=== PATIENT | male | born 1930 | race Caucasian/White ===

== ENCOUNTER 2017-04-09 05:00 | Inpatient (IN) ==
[~2017-04-09 05:00] MED LIST: APIXABAN 2.5 MG TABLET PO SCH; ChlordiazePOXIDE/CLIDINIUM 5-2.5 MG CAPSULE PO SCH; DEXTROSE 5% NACL 0.45% 1,000 ML IV SCH; DIGOXIN 0.25 MG TABLET PO SCH; ENOXAPARIN 30 MG/0.3 ML SYRINGE SUBCUT SCH; FLUTICASONE 50 MCG NASAL SPRAY 16 GM BOTTLE BOTH NARES SCH; FUROSEMIDE 20 MG TABLET PO PRN; LEVOTHYROXINE 100 MCG TABLET PO SCH; METOPROLOL TARTRATE 25 MG TABLET PO SCH; METOPROLOL TARTRATE 50 MG TABLET PO SCH; TAMSULOSIN 0.4 MG CAPSULE PO SCH
--- NOTE | 2017-04-09 09:58 | Gastrointestinal Consult Note ---
<Tiffanie Spann - Last Filed: 04/09/17 09:46> Assessment and Plan (1) Nausea Status: Acute Assessment and plan: 04/09-Three to four month history of nausea with 4 pd weight loss. Hx of PUD. Findings of gallstones w/o cholecystitis. No labwork or new imaging available at this time. No EGD planned for today. May start clear liquid diet. Plan and addendum to follow by Dr Calvillo. Current Visit: Yes History of Present Illness Chief complaint: Nausea History of present illness: Mr. Pink is a 86 year old male who presented to the hospital with complaints of nausea. Pt is a fair historian however is at bedside and assists in history. Pt reports that approximately 3-4 months ago he had a gradual onset of nausea. He states nothing seemed to precipitate the episodes however they would occur randomly. He states he never vomits however he has tried to do so to get relief without success. He states that he has no epigastric or abdominal pain associated with this. He has lost approximately 4 pounds since onset. Denies any associated symptoms other than constipation around the same time. He states that he has no dysphagia, belching, bloating or dyspepsia. States his GERD is improved from what it was in the past and reports taking a PPI regularly. He denies any melena or hematochezia. He also has a history of atrial fib/flutter, CVA, HTN, RA, and renal failure. He was seen in the ER last week for abdominal pain and had CT of abdomen which showed cholelithiasis w/o acute cholecystitis, irregular density in left upper abdomen. 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 He is unable to recall his last endoscopy but states he has a history of PUD in the past. He states he was told with his last colonoscopy this would not need to be repeated again. No updated imaging or labs available at this time. Home Medications Medication Instructions Recorded Confirmed Type HYDROcodone/ACETAMIN 5-325 [[place] 10 mg PO BID PRN 04/09/15 04/09/17 History 5-325] Metoprolol Succinate 25 mg PO QPM 04/09/15 04/09/17 History Metoprolol Succinate 50 mg PO QAM 04/09/15 04/09/17 History Apixaban [Eliquis] 2.5 mg PO BID #60 tablet 04/17/16 04/09/17 Rx Docusate Sodium Cap [Colace Cap] 100 mg PO BID capsule 04/17/16 04/09/17 Rx ChlordiazePOX/CLIDINIUM 5-2.5 5 mg PO TIDAC 04/09/17 04/09/17 History [Librax] Digoxin 0.25 mg PO DIRECTED 04/09/17 04/09/17 History Furosemide Tab [Lasix Tab] 20 mg PO DAILY PRN 04/09/17 04/09/17 History Levothyroxine Tab [Synthroid Tab] 100 mcg PO DAILY@0700 04/09/17 04/09/17 History Tamsulosin [Flomax] 0.4 mg PO DAILY 04/09/17 04/09/17 History Vit C/Vit E AC/Lut/Copper/Zinc 1 tablet PO DAILY 04/09/17 04/09/17 History [Preservision Lutein Softgel] Allergies Allergy/AdvReac Type Severity Reaction Status Date / Time No Known Allergies Allergy Verified 04/03/17 05:45 Medical,Surgical,& Family Hx - Medical History Cardio: History of: Cardiac Dysrhythmia (AFIB), Hypertension Endocrine: History of: Dyslipidemia Gastrointestinal: History of: GI Problems (spleenectomy/pancreas) - Surgical History Abdominal Surgeries: Patient denies: Abdominal Surgery - Family History Family History: Reports;: Family Cancer, Family Heart Disease, Family Hypertension, Family Stroke - Social History Smoking Status: Never smoker Frequency of Alcohol Use: None Type of Drug Use: None 12 point system: reviewed and no additional remarkable complaints except as stated - Constitutional Constitutional: Present: as per HPI, weight loss - EENT Eyes: Present: as per HPI Ears: Present: as per HPI Nose, mouth and throat: Present: as per HPI - Cardiovascular Cardiovascular: Present: as per HPI - Respiratory Respiratory: Present: as per HPI - Gastrointestinal Gastrointestinal: Present: as per HPI, nausea - Genitourinary Genitourinary: Present: as per HPI - Musculoskeletal Musculoskeletal: Present: as per HPI - Neurological Neurological: Present: as per HPI - Psychiatric Psychiatric: Present: as per HPI - Endocrine Endocrine: Present: as per HPI - Hematologic/Lymphatic Hematologic/Lymphatic: Present: as per HPI Exam - Constitutional Vitals: Period Temp Pulse Resp BP Sys/Taylor Pulse Ox Last 24 Hr 98.7 F-98.7 F 70-70 20-20 152-152/104-104 95-95 General appearance: normal weight, no acute distress - Head Head exam: Present: normal inspection, normocephalic - Eye Eye exam: Present: other (lids and conjunctiva unremarkable). Absent: scleral icterus - ENT ENT exam: Present: normal exam, normal oropharynx - Neck Neck exam: Present: normal inspection - Respiratory Respiratory exam: Present: clear to auscultation bilaterally. Absent: rales, rhonchi, wheezes - Cardiovascular Cardiovascular exam: Present: regular rate and rhythm. Absent: diastolic murmur , JVD, systolic murmur - GI/Abdominal GI/Abdominal exam: Present: normal bowel sounds, soft. Absent: ascites, distended, mass, organomegaly, tenderness - Extremities Exam Extremities exam: Present: normal inspection, full ROM - Back Exam Back exam: Present: normal inspection - Neurological Exam Neurological exam: Present: alert, oriented X3 - Psychiatric Psychiatric exam: Present: normal affect, normal mood - Skin Skin exam: Present: normal color, warm, dry <Bao Calvillo - Last Filed: 04/09/17 12:51> History of Present Illness History of present illness: Mr. Pink is a 86 year old male Exam - Constitutional Vitals: Period Temp Pulse Resp BP Sys/Taylor Pulse Ox Last 24 Hr 97.5 F-98.7 F 70-72 18-20 152-170/96-104 93-95 Results - Labs CBC & BMP: 04/09/17 10:20 04/09/17 10:20
--- NOTE | 2017-04-09 10:12 | Pulmonology History & Physical ---
History of Present Illness Chief complaint: Food aversion. Nausea. Weight loss. History of present illness: Mr. Pink is a 86 year old white male who is seen as a work in in my office on 04/03/2017. He came along with his Razia. Patient's also followed by Kenna Carbajal nurse practitioner at the [facility] in [place]. This patient has developed an aversion to food. He can eat very little. He has associated nausea. He is having a hard time keeping food down. Since I last saw him 12/24/2016 he has lost 4 pounds. He went to the emergency room on because he had nausea and some vague abdominal pain. He was found to have a single gallstone. The gallbladder itself looked normal and his liver function tests were normal. He was told that he possibly needed gallbladder surgery and he told the emergency room doctor he wanted to discuss it with me first. The abdominal pain is not severe and sometimes it is localized near the right upper quadrant. I did not get a good history for gallbladder symptoms. 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 This was followed by a Sara-en-Y procedure and complicated by aspiration and pulmonary bacterial infections and adult respiratory distress syndrome that require mechanical ventilation on a long-term basis. Patient was then at [facility] 04/13/2005 2 05/21/2005. I wonder if we are dealing with a problem with improper gastric emptying. The patient also complains of some increased difficulty urinating. In the past he was on Flomax 0.4 mg once a day and when I saw him in the office 04/03/2017 increased to 0.4 mg twice a day with instructions to watch for postural hypotension. Patient also had a history of chronic renal failure and he has had a history of heart disease which is followed by Dr. Red Trejo. He has been followed from a GI standpoint by Dr. Manuel Calvillo. The patient has very little endurance and he has some dyspnea on exertion he has some shortness of breath. The patient had a stroke while on Coumadin in the past and he was switched to Eliquis and. His strokes were thought to be embolic. He has had no problems with bleeding while on Eliquis. The patient also complains of pain all over his body which he thinks is arthritis. The remainder the review of systems is negative. Allergies. In the distant past a B12 injection caused a rash. The patient has intolerance to Zoloft. Reglan made his legs hurt. Procardia caused lower extremity edema. Patient says that when he took gabapentin he talked out of his head. Medicines. B12 1 cc IM once a month. Lanoxin 0.25 mg, one half tablet on Wednesdays and Fridays. Eliquis 2.5 mg twice daily. Flomax 0.4 mg twice daily. Flonase nasal spray. Lasix 20 mg daily on a as needed basis. Librax 52 0.5, 1 3 times daily before meals as needed. Metoprolol tartrate 2 mg in the morning 20 5 at night. [place] 7.5/3 25 mg, 1 4 times daily as needed pain. I think the patient usually takes 1 pill before bedtime. Synthroid 100 mcg daily. PreserVision AREDS. Pneumovax was given 2008. Past history. [facility] hospitalization 03/12/2005 through 04/13/2005. 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 Following that he had problems with aspiration and developed adult respiratory distress syndrome and later had a bacterial superinfection. He required mechanical ventilation on a long-term basis. He also had a trach, atrial fib, hiatal hernia, gastroesophageal reflux disease, anemia, malnutrition , azotemia which resolved and decreased folic acid levels and borderline B12 level and iron deficiency. He had a persistent elevation of alkaline [place] secondary to malnourishment. He has had previous prostate surgery. Patient was in [facility] 520 02/22 through 04/12/2014 with chronic atrial fib with a rapid ventricular response associated with acute diastolic congestive heart failure. At that time he had acute on chronic renal failure and he went home with a creatinine of 2.5 and a BUN of 24. He also had acute pyelonephritis secondary to E. coli. In February 2014 he was hospitalized in [facility] with a right lower lung pneumonia and he had a persistent right parapneumonic effusion. He had orthostatic hypotension at that time. In 2014 the patient had shingles over his right chest. He had a hospitalization April 2016 with acute CVA of the left posterior cerebral artery distribution. Social history. The patient is . His , Razia is very supportive. 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 He stopped smoking around 1969. He does not use alcohol. 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 Family history. His father had heart disease. His mother had arthritis. CT of the abdomen and pelvis done 04/03/2017 showed a stable 0.65 hypodensity in the lateral left hepatic lobe. The radiologist said characterization was difficult but it was thought to represent a benign process such as a cyst. There was a 0.8 cm stone in the dependent aspect of the gallbladder. The gallstone was otherwise unremarkable. No biliary dilatation was seen. The pancreas was want unremarkable. The spleen was not identified. Adrenals were unremarkable. On kidney exam the left kidney was mildly atrophic. The urinary bladder was unremarkable. The prostate was mildly enlarged. There was no evidence of bowel obstruction or bowel inflammation. There was a suture line at the loop of the small bowel within the left abdomen. The appendix was normal. The abdominal aorta was normal with moderate scattered calcified plaques in the abdominal aorta and its branches. There was an irregular density in left upper quadrant mainly peripheral and this abutted against the splenic flexure and likely represented calcification from remote insult. There were no suspicious lymph nodes. Abdominal wall and pelvic wall were unremarkable. There were degenerative changes which are most prominent at L4- L5 and L5-S1. Emergency room records from 04/03/2017 showed. Normal urinalysis. Potassium 5.2. Sodium 141. Creatinine 2.70. BUN 28. Glucose 99. Calcium, magnesium magnesium, total protein, AST, ALT, alkaline phosphatase and total proteins were normal. Albumin was slightly low at 3.3. Globulin was 4.0. Lipase was 391. White blood cell count was 10,600 with 64 segs, 25 lymphs and 10 monocytes. Platelets are 250,000. H&H was 16.9 or 50.2 with normal indices and normal red blood cell distribution with. CT of the head done 04/12/2016 showed small wedge-shaped hypoattenuation within the left parietal lobe suggesting recent infarction and a small encephalomalacia within the left frontal lobe suggesting old infarction and progressive chronic microvascular ischemic changes and volume loss. C scope with Dr. Manuel Calvillo 09/27/2011 showed diverticulosis. Carotid ultrasounds done 01/12/2011 showed a small amount of arteriosclerotic plaque. Echocardiogram done 03/30/2014 showed an ejection fraction of 45%. Aortic valve was trileaflet and delicate. There was +1 mitral regurgitation +2 tricuspid regurgitation. Pulmonary systolic artery pressures were 26 mmHg. physical exam. Vital signs. See below 5 feet 11 inches tall and weighs 177 pounds. Blood pressure is 138/86. Heart rate 85. Respiratory rate 20. O2 sats on room air 98% Psychiatric. Oriented 3. Does not look like he feels good. Head eyes ears nose and throat. Pupils irises sclera conjunctiva and eyelids are normal. Face is symmetrical with no rashes and no masses. Salivary glands are normal. Nares are normal. Nasal turbinates are pale and edematous with clear drainage from above. Lips tongue become mucosa soft hard of palate and pharynx are nor Neck. Symmetrical. No masses. Thyroid was not palpated. Lymphatics. No submandibular, cervical, supraclavicular or epitrochlear adenopathy. Chest is symmetrical and wheeze free. No chest wall tenderness. Heart. Irregular. Slightly lateral PMI. I cannot hear murmur rub or gallop. Abdomen. No definite or met organomegaly. I cannot elicit any true tenderness although the patient does seem to guard a little bit in the mid upper epigastrium. Bowel sounds are present. and rectal. Deferred. Musculoskeletal. Slight loss of normal curvature cervical thoracic lumbar spine. Extremities. No edema. Nothing to suggest deep venous thrombophlebitis. Arterial. Carotids reveal good upstroke. Upper extremity pulses are palpable. Lower extremity pulses are nonpalpable. No evidence of lower extremity ischemia Venous exam. Exam of the neck upper and lower extremities are normal. Skin. Actinic damage over the dorsum of both upper extremities with associated purpura. There was some actinic damage to skin of the face. There is some mild changes of chronic venous stasis on both lower extremities. No edema was seen. Neurological cranial nerves are intact with decreased hearing acuity bilaterally. Long track motor functions intact. Sensory exam and proprioception were not done. The remainder the exam is noncontributory. Impression. 1. Food aversion and loss of appetite with weight loss and persistent recurrent nausea. Etiology undetermined. Look for problems with gastric emptying through the Sara-en-Y. Note the patient had a single gallstone without evidence of obstruction. Look for gallbladder dysfunction 2. Hypothyroidism. On replacement. 3. Atrial fib with a history of rapid response and acute diastolic congestive heart failure. Now under good control 4. Hypertension. Good control 5. Rheumatoid arthritis 6. Chronic anticoagulation with Eliquis 7. 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 8. Chronic renal failure. Recent creatinines have been 2.4, 2.53, 2.60 and on 04/03/2017 creatinine was 2.70 9. Hyper lipid 10. BPH. Recent straining. Previous prostate surgery 11. Pernicious anemia secondary to B12 deficiency. 12. Hiatal hernia with gastroesophageal reflux disease 11. Degenerative joint disease 12. Mild mitral regurgitation with tricuspid regurgitation and normal pulmonary artery pressures . 13. Previous trach. 13. Degenerative joint disease. 14. See past history. Plan. 1. Admit to the hospital. IV fluids 2. HIDA scan 3. Echocardiogram was done recently at Dr. Trejo's office. I will asked Dr. Trejo to follow the patient from a cardiology standpoint and help with management of his anticoagulation in case the patient requires surgery 4. Consult Dr. Manuel Calvillo to investigate his gallstone and to investigate his food aversion and nausea. Note the that he had had a previous Sara-en-Y procedure. 5. Noted in the past patient had surgery with Dr. Nazario Escobedo Junior. I have not consulted surgery yet. 6. See orders. Home Medications Medication Instructions Recorded Confirmed Type HYDROcodone/ACETAMIN 5-325 [[place] 10 mg PO Q6H PRN 04/09/15 04/09/17 History 5-325] Metoprolol Succinate 25 mg PO QPM 04/09/15 04/09/17 History Metoprolol Succinate 50 mg PO QAM 04/09/15 04/09/17 History Apixaban [Eliquis] 2.5 mg PO BID #60 tablet 04/17/16 04/09/17 Rx Dexamethasone [Dexamethasone Tab] 2 mg PO DIRECTED #5 tablet 04/17/16 Rx Docusate Sodium Cap [Colace Cap] 100 mg PO BID capsule 04/17/16 04/09/17 Rx ChlordiazePOX/CLIDINIUM 5-2.5 PRN 04/09/17 History [Librax] Digoxin 0.25 mg PO DAILY 04/09/17 04/09/17 History Furosemide Tab [Lasix Tab] 20 mg PO DIRECTED 04/09/17 04/09/17 History Levothyroxine Tab [Synthroid Tab] 100 mcg PO DAILY@0700 04/09/17 04/09/17 History Tamsulosin [Flomax] 0.4 mg PO DAILY 04/09/17 04/09/17 History Vit C/Vit E AC/Lut/Copper/Zinc 04/09/17 History [Preservision Lutein Softgel] Allergies Allergy/AdvReac Type Severity Reaction Status Date / Time No Known Allergies Allergy Verified 04/03/17 05:45 Medical,Surgical,& Family Hx - Medical History Cardio: History of: Cardiac Dysrhythmia (AFIB), Hypertension Endocrine: History of: Dyslipidemia Gastrointestinal: History of: GI Problems (spleenectomy/pancreas) - Surgical History Abdominal Surgeries: Patient denies: Abdominal Surgery - Family History Family History: Reports;: Family Cancer, Family Heart Disease, Family Hypertension, Family Stroke - Social History Smoking Status: Never smoker Frequency of Alcohol Use: None Type of Drug Use: None Exam (Pulmonay) H&P - Constitutional Vitals: Period Temp Pulse Resp BP Sys/Taylor Pulse Ox Last 24 Hr 98.7 F-98.7 F 70-70 20-20 152-152/104-104 95-95
[2017-04-09 10:37] LABS: Basophils # 0.1 10*3/uL (0.0-0.2); Basophils % 0.7 % (0.0-0.8); Eosinophils # 0.1 10*3/uL (0.0-0.87); Eosinophils % 1.3 % (0.00-10.9); Hematocrit 45.7 VOL% (42.0-52.0); Hemoglobin 15.1 GM/DL (14.0-18.0); Immature Granulocytes % 0.3 %; Immature Granulocytes Absolute 0.03 #; Lymphocytes % 28.7 % (21.2-54.2); Mean Corpuscular Hemoglobin 32 PG (27-34); Mean Corpuscular Volume 95.4 FL (87-102); Mean Platelet Volume 11.8 FL (9.6-12.0); Monocytes # 0.8 10*3/uL (0.11-0.8); Monocytes % 7.4 % (1.7-12.7); Neutrophils # 6.4 10*3/uL (1.4-7.4); Neutrophils % 61.6 % (38.7-73.9); Platelet Count 253 T/CUMM (130-400); Red Blood Count 4.79 MC/CUMM (3.8-5.5); Red Cell Distribution Width 13.7 % (9.3-17.3); White Blood Count 10.3 T/CUMM (4-12)
--- NOTE | 2017-04-09 11:04 | Nephrology Consult Note ---
History of Present Illness Chief complaint: Pt referred for CKD stage 4. Admitted for vague abdominal complaints. History of present illness: Mr. Pink is a 86 year old male with CKD stage 4, eGFR 20-25cc/min by CKD-EPI formula and creatinine 2.5. Hx of pyelonephritis, RIMA in past. BPH symptoms worse recently with straining to void, improved since flomax increased last week by Dr Alan. Admitted with vague c/o nausea and anorexia. Denies specific abd pain, but appears uncomfortable when testing Desai's sign which has good sensitivity (>95%) but not very specific (48%) especially in the elderly. Home Medications Medication Instructions Recorded Confirmed Type HYDROcodone/ACETAMIN 5-325 [[place] 10 mg PO Q6H PRN 04/09/15 04/09/17 History 5-325] Metoprolol Succinate 25 mg PO QPM 04/09/15 04/09/17 History Metoprolol Succinate 50 mg PO QAM 04/09/15 04/09/17 History Apixaban [Eliquis] 2.5 mg PO BID #60 tablet 04/17/16 04/09/17 Rx Dexamethasone [Dexamethasone Tab] 2 mg PO DIRECTED #5 tablet 04/17/16 Rx Docusate Sodium Cap [Colace Cap] 100 mg PO BID capsule 04/17/16 04/09/17 Rx ChlordiazePOX/CLIDINIUM 5-2.5 PRN 04/09/17 History [Librax] Digoxin 0.25 mg PO DAILY 04/09/17 04/09/17 History Furosemide Tab [Lasix Tab] 20 mg PO DIRECTED 04/09/17 04/09/17 History Levothyroxine Tab [Synthroid Tab] 100 mcg PO DAILY@0700 04/09/17 04/09/17 History Tamsulosin [Flomax] 0.4 mg PO DAILY 04/09/17 04/09/17 History Vit C/Vit E AC/Lut/Copper/Zinc 04/09/17 History [Preservision Lutein Softgel] Allergies Allergy/AdvReac Type Severity Reaction Status Date / Time No Known Allergies Allergy Verified 04/03/17 05:45 Medical,Surgical,& Family Hx - Medical History Cardio: History of: Cardiac Dysrhythmia (AFIB), Hypertension Endocrine: History of: Dyslipidemia Renal: History of: Renal Problems Genitourinary: History of: Prostate Problems Gastrointestinal: History of: GI Problems (spleenectomy/pancreas) - Surgical History Abdominal Surgeries: Patient denies: Abdominal Surgery - Family History Family History: Reports;: Family Cancer, Family Heart Disease, Family Hypertension, Family Stroke - Social History Smoking Status: Never smoker Frequency of Alcohol Use: None Type of Drug Use: None Exam - Vital Signs Vital signs: Period Temp Pulse Resp BP Sys/Taylor Pulse Ox Last 24 Hr 98.7 F-98.7 F 70-70 20-20 152-152/104-104 95-95 - General Appearance General appearance: well-developed, well-nourished EENT: ATNC, PERRL, mucous membranes moist, hearing intact, vision intact Neck: no JVD, no carotid bruit Respiratory: no kyphosis, clear Cardiology: no murmurs, no rub, no edema Gastrointestinal: normoactive bowel sounds, no tenderness Integumentary: no rash, warm and dry Neurologic: no focal deficit, no asterixis, alert and oriented x3 Musculoskeletal: no deformities, no erythema, no cyanosis Psychiatric: mood/affect appropriate, cooperative Results - Labs CBC & BMP: 04/09/17 10:20 Assessment and Plan (1) CKD (chronic kidney disease) stage 4, GFR 15-29 ml/min Problem details: Avoid nephrotoxins to include gadolinium with MRI today as he is at increased risk for nephrogenic systemic fibrosis. Avoid IV iodinated contrast as well if possible. If required, give mucomyst 1200mg po bid, IVFs 3ml /kg/hr and misoprostol 400mcg po q6h, starting one day before and continuing one day after dye load. Renally dose all meds for eGFR 25cc/min. Avoid hypotension, NSAIDs, aminoglycosides if possible. Status: Acute Assessment and plan: The patient confirms that if the indication for renal replacement (i.e. dialysis ) arose, he would not want dialysis. Renally dose all meds for eGFR 20cc/min. Avoid nephrotoxins to include NSAIDs, aminoglycosides and IV contrast if possible. Avoid hypotension, volume depletion. No renal contraindication for surgical intervention if planned. Current Visit: No
[2017-04-09 11:28] LABS: Albumin 3.2 G/DL (3.4-5.0); Bilirubin,Total 0.9 MG/DL (0.2-1.0); Calcium 8.7 MG/DL (8.5-10.1); Free T4 (Free Thyroxine) 1.14 NG/DL (0.76-1.46); Osmolality,Calculated 278.7 MOS/KG (273-304); Potassium 5.1 MMOL/L (3.5-5.1); Thyroid Stimulating Hormone 6.28 uIU/ml (0.358-3.74); Total Protein 6.7 G/DL (6.4-8.3)
[2017-04-09 11:35] LABS: Apearance,Urine CLEAR (Clear); Bilirubin,Urine Negative (Negative); Blood, Urine Negative (Negative); Glucose,Urine (UA) Negative (Negative); Hyaline Casts,Urine 1 /LPF (0-3); Ketones,Urine Negative (Negative); Mucus,Urine Occasional /LPF (Occasional); Nitrite,Urine Negative (Negative); Protein,Urine 100 MG/DL; RBC,Urine <1 /HPF (0-4); Squamous Epithelial Cell,Urine Occasional /HPF (0-10); Urine Color Yellow (Yellow); Urine Specific Gravity 1.014 (1.001-1.035); Urine Urobilinogen < 2.0 EU/DL (0.2-1.0); WBC,Urine 2 /HPF (0-6)
--- NOTE | 2017-04-09 12:18 | Cardiology Consult Note ---
IDebbie April RN, am scribing for, and in the presence of, Sterling Vieira MD 12:17. Assessment and Plan - Time spent with patient Time spent with patient: Greater than 30 minutes (Due to assessment, planning, documentation, medication review) (1) Chronic anticoagulation Status: Chronic Assessment and plan: He is on Eliquis. This could be held to facilitate procedures if necessary. Current Visit: Yes (2) Chronic atrial fibrillation Status: Chronic Assessment and plan: His chronic atrial fibrillation which is asymptomatic and well controlled. Current Visit: Yes (3) Nausea Status: Acute Assessment and plan: This is going to be evaluated by gastroenterology. He does have a gallstone which could be a factor. I will defer management to the admitting team and gastroenterology. Current Visit: Yes (4) History of stroke Status: Acute Current Visit: Yes (5) CKD (chronic kidney disease) stage 4, GFR 15-29 ml/min Problem details: Avoid nephrotoxins to include gadolinium with MRI today as he is at increased risk for nephrogenic systemic fibrosis. Avoid IV iodinated contrast as well if possible. If required, give mucomyst 1200mg po bid, IVFs 3ml /kg/hr and misoprostol 400mcg po q6h, starting one day before and continuing one day after dye load. Renally dose all meds for eGFR 25cc/min. Avoid hypotension, NSAIDs, aminoglycosides if possible. Status: Acute Current Visit: No (6) Cholelithiasis Status: Acute Current Visit: No (7) HTN, goal below 140/90 Problem details: Not at goal. Status: Acute Current Visit: No History of Present Illness - Data of Consult Patient: known to practice within the last 3 years Consult date: 04/09/17 Requesting Physician: Jayden Valiente - Consult Narrative Reason for consult: Evaluation for possible gallbladder surgry History of present illness: Physician Primary Care Sports Medicine: Dr. Trejo Mr. Pink is a 86 year old male who is routinely followed by Dr. Trejo with a history of atrial fib/flutter, CVA, GERD, hypertension, macular degeneration, shingles, rheumatoid arthritis, chronic renal failure and diverticulosis. She is anticoagulated on Eliquis. He tells me he had a heart cath many years ago and I do not see record of this, but there is mention in a note by Dr. Ng in 1998 that he had a heart cath in 1990 that showed no significant coronary artery disease. He denies any heart cath since this time. Stress testing Dr. Trejo's office in November 2013 suggested normal myocardial perfusion without good evidence to suggest myocardial scar or ischemia. He had an echo at Dr. Trejo's office last week with ejection fraction 55%, moderate (2+) mitral regurgitation, trace pulmonic regurgitation, mild to moderate (1-2+) tricuspid regurgitation. Other surgical history includes bilateral cataract, neck, prostate, spleen, and pancreas. Family history is positive for heart disease in his father and hypertension in his mother. He reports smoking in the remote past, stating he quit 40-50 years ago. Mr. Pink reports having generalized abdominal pain and nausea for the last 3 months. The symptoms are moderate in severity. There are no specific exacerbating or relieving factors. The symptoms are associated with anorexia/ lack of appetite and weight loss. He was seen in the emergency department [facility] 04/03/[address] of the abdomen and pelvis showed a gallstone. The patient reports Dr. Alan admitted him today for further evaluation and to be worked up in case he needs surgery. Gastroenterology has been consulted to assist with workup and management. He is seen sitting up on side of bed no acute distress. He reports he continues to have some abdominal discomfort and nausea periodically. He reports he has chronic shortness of breath at rest and on exertion, denies orthopnea. He reports he occasionally has some vague chest discomfort. He is not able to describe this very well, he cannot tell me if it is sharp dull or tightness. He notes no specific triggers or alleviators. He states he has had this for many years and it is unchanged and infrequent. He last had this discomfort several days ago. He states he is sure it is not related to his heart. He reports he does have occasional palpitations. Currently he denies chest pain, shortness of breath, palpitations, or dizziness. Blood pressure this morning is elevated at 152/104. Labs are pending. CC: Sergio Alan MD - Home Medications and Allergies Home Medications: Home Medications Medication Instructions Recorded Confirmed Type HYDROcodone/ACETAMIN 5-325 [[place] 10 mg PO BID PRN 04/09/15 04/09/17 History 5-325] Metoprolol Succinate 25 mg PO QPM 04/09/15 04/09/17 History Metoprolol Succinate 50 mg PO QAM 04/09/15 04/09/17 History Apixaban [Eliquis] 2.5 mg PO BID #60 tablet 04/17/16 04/09/17 Rx Docusate Sodium Cap [Colace Cap] 100 mg PO BID capsule 04/17/16 04/09/17 Rx ChlordiazePOX/CLIDINIUM 5-2.5 5 mg PO TIDAC 04/09/17 04/09/17 History [Librax] Digoxin 0.25 mg PO DIRECTED 04/09/17 04/09/17 History Furosemide Tab [Lasix Tab] 20 mg PO DAILY PRN 04/09/17 04/09/17 History Levothyroxine Tab [Synthroid Tab] 100 mcg PO DAILY@0700 04/09/17 04/09/17 History Tamsulosin [Flomax] 0.4 mg PO DAILY 04/09/17 04/09/17 History Vit C/Vit E AC/Lut/Copper/Zinc 1 tablet PO DAILY 04/09/17 04/09/17 History [Preservision Lutein Softgel] Allergies/Adverse Reactions: Allergies Allergy/AdvReac Type Severity Reaction Status Date / Time No Known Allergies Allergy Verified 04/03/17 05:45 - Constitutional Constitutional: Present: as per HPI - EENT Eyes: Present: loss of vision, requires corrective lense Ears: Present: decreased hearing. Absent: ear pain Nose, mouth and throat: Present: headache(s), neck pain. Absent: dysphagia, epistaxis - Cardiovascular Cardiovascular: Present: chest pain at rest, dyspnea, dyspnea on exertion, palpitations. Absent: diaphoresis, edema, radiating jaw, neck or arm pain, lightheadedness, orthopnea - Respiratory Respiratory: Present: dyspnea, dyspnea on exertion. Absent: cough, hemoptysis, wheezing - Gastrointestinal Gastrointestinal: Present: abdominal pain, constipation, nausea. Absent: diarrhea, hematemesis, hematochezia, melena, vomiting - Genitourinary Genitourinary: Absent: dysuria, hematuria - Musculoskeletal Musculoskeletal: Present: back pain, limited range of motion, muscle weakness - Neurological Neurological: Present: abnormal gait, headache(s). Absent: confusion, dizziness , frequent falls, syncope - Psychiatric Psychiatric: Absent: anxiety, depression - Endocrine Endocrine: Present: fatigue - Hematologic/Lymphatic Hematologic/Lymphatic: Present: easy bruising. Absent: easy bleeding Medical,Surgical,& Family Hx - Medical History Cardio: History of: Cardiac Dysrhythmia (AFIB), Hypertension, Valvular Heart Disease Neurology: History of: Cerebrovascular Accident Endocrine: History of: Dyslipidemia Gastrointestinal: History of: GI Problems (spleenectomy/pancreas) Musculoskeletal: History of: Back/Neck Problems - Surgical History Cardiac Surgeries: Sugical HX of: Cardiac Catheterization (1990) HEENT Surgeries: Surgical HX of: Eye Surgery (Bilateral cataract) Abdominal Surgeries: Surgical HX of: Abdominal Surgery (Pancreatic), Splenectomy Reproductive Surgeries: Surgical HX of;: Prostate Surgery Additional Surgical History: Neck - Family History Family History: Reports;: Family Cancer, Family Heart Disease, Family Hypertension, Family Stroke - Social History Smoking Status: Former smoker (Reports he quit 40-50 years ago) Have you smoked in the last 12 months: No Frequency of Alcohol Use: None Type of Drug Use: None Marital Status: Lives With:: Spouse Functional capacity: independent ambulation Physical Examination Vital Signs Temp Pulse Resp BP Pulse Ox 98.7 F 70 20 152/104 95 04/09/17 07:02 04/09/17 07:02 04/09/17 07:02 04/09/17 07:02 04/09/17 07:02 General: Present: Appears Well, No Apparent Distress HEENT: Present: PERRL, Mucus Membranes Moist Neck: Present: Supple Neck, Midline Trachea, No Bruit Cardiac: Present: Irregularly Regular, No Murmur Lungs: Present: Normal Breath Sounds, No Wheeze, Rales, Rhonchi Neuro: Absent: Resting Tremor, Essential Tremor Abdomen: Present: Soft, Active Bowel Sounds, Non-Tender. Absent: Distended Skin: Absent: Rash, Wound Musculoskeletal: Present: Decreased Range of Motion, Pain in Joint Extremities: Present: No Edema, Normal Upper Extr. Pulses, Normal Lower Extr. Pulses. Absent: Normal Gait Result/EKG - Labs CBC & BMP: 04/09/17 10:20 04/09/17 10:20 Lab Results: I have reviewed the past 24 hour labs Labs: Laboratory Results - last 24 hr 04/09/17 04/09/17 04/09/17 10:20 10:20 10:20 WBC 10.3 RBC 4.79 Hgb 15.1 Hct 45.7 MCV 95.4 MCH 32 MCHC 33.0 RDW 13.7 Plt Count 253 MPV 11.8 Neut % (Auto) 61.6 Lymph % (Auto) 28.7 Sawyer % (Auto) 7.4 Eos % (Auto) 1.3 Baso % (Auto) 0.7 Neut # (Auto) 6.4 Lymph # (Auto) 3.0 Sawyer # (Auto) 0.8 Eos # (Auto) 0.1 Baso # (Auto) 0.1 Immature Gran % 0.3 Nucleated RBC % 0.0 Immature Gran # 0.03 Nucleated RBCs # 0.00 Sodium 138 Potassium 5.1 Chloride 104 Carbon Dioxide 29 Anion Gap 10.1 BUN 26 H Creatinine 2.50 H GFR Calculation 26 BUN/Creatinine Ratio 10.00 Glucose 79 Calculated Osmolality 278.7 Calcium 8.7 Total Bilirubin 0.90 AST 21 ALT 17 Alkaline Phosphatase 95 Total Protein 6.7 Albumin 3.2 L Globulin 3.5 Albumin/Globulin Ratio 0.9 L Amylase 108 Lipase 230.0 Free T4 1.14 TSH 3rd Generation 6.280 H Urine Color Urine Appearance Urine pH Ur Specific Monon Urine Protein Urine Glucose (UA) Urine Ketones Urine Blood Urine Nitrate Urine Bilirubin Urine Urobilinogen Urine Leukocytes Urine RBC Urine WBC Ur Squamous Epith Cells Hyaline Casts Urine Mucus Ur Culture Indicated? Digoxin 0.80 L 04/09/17 11:00 WBC RBC Hgb Hct MCV MCH MCHC RDW Plt Count MPV Neut % (Auto) Lymph % (Auto) Sawyer % (Auto) Eos % (Auto) Baso % (Auto) Neut # (Auto) Lymph # (Auto) Sawyer # (Auto) Eos # (Auto) Baso # (Auto) Immature Gran % Nucleated RBC % Immature Gran # Nucleated RBCs # Sodium Potassium Chloride Carbon Dioxide Anion Gap BUN Creatinine GFR Calculation BUN/Creatinine Ratio Glucose Calculated Osmolality Calcium Total Bilirubin AST ALT Alkaline Phosphatase Total Protein Albumin Globulin Albumin/Globulin Ratio Amylase Lipase Free T4 TSH 3rd Generation Urine Color Yellow Urine Appearance Clear Urine pH 5.0 Ur Specific Monon 1.014 Urine Protein 100 Urine Glucose (UA) Negative Urine Ketones Negative Urine Blood Negative Urine Nitrate Negative Urine Bilirubin Negative Urine Urobilinogen < 2.0 H Urine Leukocytes Negative Urine RBC <1 Urine WBC 2 Ur Squamous Epith Cells Occasional Hyaline Casts 1 Urine Mucus Occasional Ur Culture Indicated? Not indicated Digoxin - EKG EKG results: interpreted by Isha Carranza Michael, MD, personally performed the services described in this documentation, ascribed by Lizzie Lewis RN in my presence, and it is both accurate and complete .
[2017-04-09] MEDS ORDERED: FUROSEMIDE 20 MG TABLET PO PRN (12:50)
[2017-04-09] MEDS: TAMSULOSIN 0.4 MG CAPSULE PO SCH (13:01)
[2017-04-09] MEDS: ChlordiazePOXIDE/CLIDINIUM 5-2.5 MG CAPSULE PO SCH (17:24)
[2017-04-09] MEDS: METOPROLOL TARTRATE 25 MG TABLET PO SCH (20:05)
[2017-04-09] MEDS: DOCUSATE SODIUM 100 MG CAPSULE PO SCH (20:05)
[2017-04-10 05:17] LABS: Basophils # 0.1 10*3/uL (0.0-0.2); Basophils % 0.7 % (0.0-0.8); Eosinophils # 0.2 10*3/uL (0.0-0.87); Eosinophils % 2.1 % (0.00-10.9); Hemoglobin 15.5 GM/DL (14.0-18.0); Immature Granulocytes % 0.2 %; Immature Granulocytes Absolute 0.02 #; Lymphocytes # 2.8 10*3/uL (1.4-4.0); Lymphocytes % 31.3 % (21.2-54.2); Mean Corpuscular HGB Conc 33.7 GM/DL (32-36); Mean Corpuscular Hemoglobin 32 PG (27-34); Mean Corpuscular Volume 94.5 FL (87-102); Mean Platelet Volume 11.9 FL (9.6-12.0); Monocytes # 0.8 10*3/uL (0.11-0.8); Monocytes % 8.7 % (1.7-12.7); Neutrophils # 5.1 10*3/uL (1.4-7.4); Platelet Count 255 T/CUMM (130-400); Red Blood Count 4.87 MC/CUMM (3.8-5.5); Red Cell Distribution Width 13.5 % (9.3-17.3); White Blood Count 8.9 T/CUMM (4-12)
[2017-04-10 05:53] LABS: Calcium 9.2 MG/DL (8.5-10.1); Magnesium 2.4 MG/DL (1.8-2.4); Osmolality,Calculated 281.4 MOS/KG (273-304); Potassium 4.9 MMOL/L (3.5-5.1)
--- NOTE | 2017-04-10 06:26 | EKG Report ---
Stationary ECG Study [facility] Test Date: 04/09/2017 2:26:28 PM Pat Name: BELLO BESS Department: Room: 519 Gender: M Pharmacy Innovation Assistant: ALEX : 1930 Requested by: Jayden Valiente Order Number: [id number] Reading MD: AARON STOUT Intervals [place] Rate: 57 P: 999 FL: 0 QRS: 113 QRSD: 108 T: 18 QT: 406 QTc: 400 Interpretive Statements ATRIAL FIBRILLATION WITH ABERRANT CONDUCTION OR VENTRICULAR PREMATURE COMPLEXES POSSIBLE RIGHT VENTRICULAR HYPERTROPHY POSSIBLE ANTERIOR MYOCARDIAL INFARCTION, PROBABLY OLD Electronically Signed On 04-12-17 08:47:27 CDT by AARON STOUT [email or web address]
--- NOTE | 2017-04-10 08:33 | Nuclear Medicine Report ---
History: Abdominal pain. Nausea Date: 04/10/2017 Study: Nuclear medicine biliary scan Comparison exam: May 04, 2015 study Following the IV administration of 5 mCi technetium 99m Choletec, there is homogeneous uptake of the radiotracer by the liver. There is prompt gallbladder visualization at 15 minutes and prompt duodenal visualization at 25 minutes. Following 60 minutes of dynamic imaging, gallbladder ejection fraction was calculated. Counts were measured over the gallbladder for 20 minutes following the IV administration of 1.59 mcg of cholecystokinin. The patient reported nausea and cramping with sincalide administration. The gallbladder ejection fraction is minimally decreased at 34%. Impression: Minimally reduced gallbladder ejection fraction of 34%, as compared to 74% on the May 04, 2015 study. Otherwise unremarkable nuclear medicine biliary scan PROCEDURE INTERPRETED AT [facility] DEPARTMENT OF RADIOLOGY Final Report Signed by: Dr. Ysabel Lawson
[2017-04-10] MEDS ORDERED: LIDOCAINE 2% 5 ML VIAL ONE (09:45)
[2017-04-10] MEDS ORDERED: PROPOFOL 200 MG/20 ML VIAL IV ONE (09:45)
--- NOTE | 2017-04-10 09:54 | History and Physical Update ---
History and Physical Update - Physical Exam Mental Status: alert and oriented Heart: regular rate and rhythm Lung: clear to auscultation Abdomen: within normal limits Vitals: within normal limits
--- NOTE | 2017-04-10 09:56 | Operative Note ---
Date of procedure: 04/10/17 Pre-op diagnosis: Persistent nausea Procedure: EGD 86-year-old white male with persistent complaints of nausea now for upper endoscopy to further evaluate. For further details please see the consultative record. Informed symptoms obtained the patient He was sedated with MAC anesthesia per anesthesia protocol Patient was placed in left lateral decubitus position the Olympus flexible video upper endoscope was inserted into the oral cavity under direct vision the esophagus was intubated. Findings: Esophagus-normal esophageal mucosa. Distal esophagus with small hiatal hernia. No significant esophagitis, Varner's, varices or stricture were identified. Stomach-normal insufflation. There is mild gastritis seen diffusely throughout the stomach no ulcers are seen to direct retroflexed views of the body, fundus, cardia or the stomach. Pylorus-normal Duodenum-normal for the bulb duodenum to the third portion of the duodenum. The procedure was terminated placed our procedure well his discharge recovery in good condition Postop diagnosis: 1. Gastroesophageal reflux disease-continue PPI treatment antireflux precautions 2. Gastritis continue PPI and avoid nonsteroidals. 3. Follow HIDA scan with available. If suggestive of biliary dyskinesia then consideration of a trial of Actigall or surgical consultation for cholecystectomy will need to be entertained. Anesthesia: MAC Surgeon / Physician: Bao Calvillo Estimated blood loss: none Specimens: none sent Condition: stable Disposition: post procedure unit Results - Labs CBC & BMP: 04/10/17 05:01 04/10/17 05:01 Discharge Plan - Discharge Medications No Action Metoprolol Succinate 50 mg PO QAM Metoprolol Succinate 25 mg PO QPM HYDROcodone/ACETAMIN 5-325 [[place] 5-325] 10 mg PO BID PRN PRN Reason: Pain Apixaban [Eliquis] 2.5 mg PO BID #60 tablet Docusate Sodium Cap [Colace Cap] 100 mg PO BID capsule Tamsulosin [Flomax] 0.4 mg PO DAILY Levothyroxine Tab [Synthroid Tab] 100 mcg PO DAILY@0700 Vit C/Vit E AC/Lut/Copper/Zinc [Preservision Lutein Softgel] 1 tablet PO DAILY Digoxin 0.25 mg PO DIRECTED ChlordiazePOX/CLIDINIUM 5-2.5 [Librax] 5 mg PO TIDAC Furosemide Tab [Lasix Tab] 20 mg PO DAILY PRN PRN Reason: Edema - Follow Up or Referral - Forms/Instructions
--- NOTE | 2017-04-10 10:00 | Pulmonology Progress Note ---
Pulmonary - PN: Subj Interval history: This is an 86-year-old white male. He is a longtime patient of mine. He was admitted to the hospital 04/09/2017. My impressions were. 1. Food aversion and loss of appetite with weight loss and persistent recurrent nausea. Etiology undetermined. Look for problems with gastric emptying through the Sara-en-Y. Note the patient had a single gallstone without evidence of obstruction. Look for gallbladder dysfunction. 04/09/2017, HIDA scan showed an ejection fraction of approximately 35%. 2. Hypothyroidism. On replacement. 3. Atrial fib with a history of rapid response and acute diastolic congestive heart failure. Now under good control 4. Hypertension. Good control 5. Rheumatoid arthritis 6. Chronic anticoagulation with Eliquis 7. 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 8. Chronic renal failure. Recent creatinines have been 2.4, 2.53, 2.60 and on 04/03/2017 creatinine was 2.70 9. Hyper lipid 10. BPH. Recent straining. Previous prostate surgery 11. Pernicious anemia secondary to B12 deficiency. 12. Hiatal hernia with gastroesophageal reflux disease 11. Degenerative joint disease 12. Mild mitral regurgitation with tricuspid regurgitation and normal pulmonary artery pressures . Echocardiogram done by Dr. Trejo March 2016 showed an ejection fraction of 55%, +2 mitral regurgitation, trace of pulmonic regurgitation, mild to moderate tricuspid regurgitation. I appreciate Dr. Sterling Vieira seen the patient in cardiology consultation. 13. Previous trach. 13. Degenerative joint disease. 14. See past history. 04/10/2017. Patient had some confusion overnight. This is resolved. He said he woke up and he could not figure out where he was. Dr. Bearden and I have reviewed the case and coordinated our care. Patient's for knee scope this morning. HIDA scan is negative. TSH is elevated with a free T4 in the normal range. The patient's on Synthroid 100 mcg daily. I will check with them to make sure he does not miss some doses. Labs been reviewed. Medicines have been reviewed. Physical exam. Vital signs. See below Psychiatric. Oriented 3. Neurologic. Cranial nerves are intact with decreased hearing acuity. Long track motor functions intact. Face. Symmetrical. Lips and tongue are normal. Neck. Symmetrical. No meningismus. Lymphatics. No submandibular cervical supraclavicular or epitrochlear adenopathy. Chest. Clear Heart. No gallop Abdomen. Minimal tenderness in the mid upper epigastrium. No mass-effect. No rebound. Extremities. No edema. Skin. Actinic damage to the face and dorsum of both upper extremities. No other areas were examined. The remainder the physical exam is negative. Plan. 1. Admit to the hospital. IV fluids 2. HIDA scan. Ejection fraction approximately 35% 3. Echocardiogram was done recently at Dr. Trejo's office. I will asked Dr. Trejo to follow the patient from a cardiology standpoint and help with management of his anticoagulation in case the patient requires surgery. See cardiology consultation 4. Consult Dr. Manuel Calvillo to investigate his gallstone and to investigate his food aversion and nausea. Note the that he had had a previous Sara-en-Y procedure. 5. Noted in the past patient had surgery with Dr. Nazario Escobedo Junior. I have not consulted surgery yet. 6. See orders. 7. 04/10/2017. See today's note above Exam (Progress Note) - Constitutional Vitals: Period Temp Pulse Resp BP Sys/Taylor Pulse Ox Last 24 Hr 96.8 F-99 F 60-96 18-22 108-185/66-120 93-99 Results - Labs CBC & BMP: 04/10/17 05:01 04/10/17 05:01
--- NOTE | 2017-04-10 10:10 | Nephrology Progress Note ---
Nephrology - PN: Subj Interval history: PT in good spirits. Had HIDA scan this am, headed to EGD, both resulted. Mild gastritis. GB EF mildly reduce to 34%. Denies SOB/pain. Creatinine 2.4 improved. CKD 4. Exam (PN)-Nephrology - Vital Signs Vital signs: Period Temp Pulse Resp BP Sys/Taylor Pulse Ox Last 24 Hr 96.8 F-99 F 60-96 18-22 108-185/66-120 93-100 - General Appearance General appearance: well-developed, well-nourished EENT: ATNC, PERRL, mucous membranes moist, hearing intact, vision intact Neck: no JVD, no thyromegaly Respiratory: no kyphosis, clear Cardiology: no murmurs, no rub Gastrointestinal: normoactive bowel sounds, no tenderness Integumentary: no rash, warm and dry Neurologic: no focal deficit, no asterixis, alert and oriented x3 Musculoskeletal: no deformities, no erythema Psychiatric: mood/affect appropriate, cooperative - Lab 04/10/17 05:01 04/10/17 05:01 Most recent lab results Calcium 9.2 MG/DL (8.5-10.1) 04/10/17 05:01 Magnesium 2.4 MG/DL (1.8-2.4) 04/10/17 05:01 Assessment and Plan (1) CKD (chronic kidney disease) stage 4, GFR 15-29 ml/min Problem details: Avoid nephrotoxins to include gadolinium with MRI today as he is at increased risk for nephrogenic systemic fibrosis. Avoid IV iodinated contrast as well if possible. If required, give mucomyst 1200mg po bid, IVFs 3ml /kg/hr and misoprostol 400mcg po q6h, starting one day before and continuing one day after dye load. Renally dose all meds for eGFR 25cc/min. Avoid hypotension, NSAIDs, aminoglycosides if possible. Status: Acute Assessment and plan: The patient confirms that if the indication for renal replacement (i.e. dialysis ) arose, he would not want dialysis. Renally dose all meds for eGFR 25cc/min. Avoid nephrotoxins to include NSAIDs, aminoglycosides and IV contrast if possible. Avoid hypotension, volume depletion. No renal contraindication for surgical intervention if planned. Current Visit: No
--- NOTE | 2017-04-10 10:38 | Anesthesia Post-Op ---
Anesthesia Post OP - Post Ansesthetic Evaluation Patient seen in post op: Yes Resp: within normal limits CV: within normal limits Mental: within normal limits Temp: within normal limits [id number]: within normal limits Nausea and Vomiting: within normal limits Pain: within normal limits
[2017-04-10] MEDS: TAMSULOSIN 0.4 MG CAPSULE PO SCH (11:10)
[2017-04-10] MEDS: LEVOTHYROXINE 100 MCG TABLET PO SCH (11:10)
[2017-04-10] MEDS: PANTOPRAZOLE 40 MG TABLET PO SCH (11:10)
[2017-04-10] MEDS: DOCUSATE SODIUM 100 MG CAPSULE PO SCH ×2 (11:10→20:53)
[2017-04-10] MEDS: ChlordiazePOXIDE/CLIDINIUM 5-2.5 MG CAPSULE PO SCH ×3 (11:10→15:41)
[2017-04-10] MEDS: METOPROLOL TARTRATE 50 MG TABLET PO SCH (11:10)
[2017-04-10] MEDS ORDERED: DIGOXIN 0.25 MG TABLET PO SCH (13:00)
--- NOTE | 2017-04-10 13:04 | Dialysis Note ---
Dialysis Note - Dialysis Note Note entered in error please disregard
--- NOTE | 2017-04-10 13:44 | Cardiology Progress Note ---
I, Lizzie Lewis RN, am scribing for, and in the presence of, Sterling Vieira MD 13:44. Assessment and Plan (1) Nausea Status: Acute Assessment and plan: This is being evaluated by gastroenterology. He does have a gallstone which could be a factor. I will defer management to the admitting team and gastroenterology. Current Visit: Yes (2) Chronic anticoagulation Status: Chronic Assessment and plan: He is on Eliquis. This is currently on hold. Current Visit: Yes (3) Chronic atrial fibrillation Status: Chronic Assessment and plan: His chronic atrial fibrillation which is asymptomatic and well controlled. Current Visit: Yes (4) History of stroke Status: Chronic Current Visit: No (5) CKD (chronic kidney disease) stage 4, GFR 15-29 ml/min Problem details: Avoid nephrotoxins to include gadolinium with MRI today as he is at increased risk for nephrogenic systemic fibrosis. Avoid IV iodinated contrast as well if possible. If required, give mucomyst 1200mg po bid, IVFs 3ml /kg/hr and misoprostol 400mcg po q6h, starting one day before and continuing one day after dye load. Renally dose all meds for eGFR 25cc/min. Avoid hypotension, NSAIDs, aminoglycosides if possible. Status: Chronic Current Visit: Yes (6) Cholelithiasis Status: Acute Current Visit: Yes (7) HTN, goal below 140/90 Problem details: Not at goal. Status: Chronic Current Visit: Yes Cardiology - PN: Subj Interval history: Inventory Worker: Dr. Trejo Mr. Barnett is seen resting in bed in no acute distress. He reports he has some nausea and abdominal discomfort earlier this morning but both are relieved now. He denies any chest pain, shortness of breath, or dizziness. EGD done this morning showed GERD and gastritis. He also had a HIDA scan done this morning. He is doing well from a cardiac standpoint. He is not having any angina, palpitations, or heart failure symptoms right now. His blood pressure is still running a bit high, last being 161/98. His home dose of metoprolol was restarted last night. Current Medications Hydrocodone Bitart/Acetaminophen ([place] 10-325) 1 tablet PO BID PRN PRN Reason: Pain Moderate (4-7) Apixaban (Eliquis) 2.5 mg PO BID [facility] Chlordiazepoxide/Clidinium (Librax) 1 capsule PO TIDAC [facility] Last Admin: 04/10/17 11:38 Dose: Not Given Digoxin (Lanoxin Tab) 0.25 mg PO MoWeFr@1300 [facility] Last Admin: 04/10/17 12:14 Dose: 0.25 mg Docusate Sodium (Colace Cap) 100 mg PO BID [facility] Last Admin: 04/10/17 11:10 Dose: 100 mg Furosemide (Lasix Tab) 20 mg PO DAILY PRN PRN Reason: Edema Levothyroxine Sodium (Synthroid Tab) 100 mcg PO DAILY@0700 [facility] Last Admin: 04/10/17 11:10 Dose: 100 mcg Magnesium Hydroxide (Milk Of Magnesia) 30 ml PO BID PRN PRN Reason: Constipation Metoprolol Tartrate (Lopressor Tab) 50 mg PO DAILY [facility] Last Admin: 04/10/17 11:10 Dose: 50 mg Metoprolol Tartrate (Lopressor Tab) 25 mg PO DAILY@2100 [facility] Last Admin: 04/09/17 20:05 Dose: 25 mg Pantoprazole Sodium (Protonix Tab) 40 mg PO DAILY [facility] Last Admin: 04/10/17 11:10 Dose: 40 mg Tamsulosin HCl (Flomax) 0.4 mg PO DAILY [facility] Last Admin: 04/10/17 11:10 Dose: 0.4 mg Exam (Progress Note) - Constitutional Vitals: Period Temp Pulse Resp BP Sys/Taylor Pulse Ox Last 24 Hr 96.8 F-99 F 60-96 18-23 108-185/66-120 93-100 General appearance: normal weight, no acute distress - Head Head exam: Absent: abrasion, hematoma - Eye Eye exam: Absent: periorbital swelling, laceration to eyelids - Neck Neck exam: Absent: tenderness - Respiratory Respiratory exam: Present: clear to auscultation bilaterally. Absent: accessory muscle use, chest wall tenderness - Cardiovascular Cardiovascular exam: Present: irregular rhythm - GI/Abdominal GI/Abdominal exam: Present: normal bowel sounds, soft. Absent: distended, tenderness - Extremities Exam Extremities exam: Absent: edema - Neurological Exam Neurological exam: Present: alert, oriented X3 - Psychiatric Psychiatric exam: Present: normal affect, normal mood - Skin Skin exam: Present: warm, dry Result/EKG - Labs CBC & BMP: 04/10/17 05:01 04/10/17 05:01 Lab Results: I have reviewed the past 24 hour labs Labs: Laboratory Results - last 24 hr 04/10/17 04/10/17 05:01 05:01 WBC 8.9 RBC 4.87 Hgb 15.5 Hct 46.0 MCV 94.5 MCH 32 MCHC 33.7 RDW 13.5 Plt Count 255 MPV 11.9 Neut % (Auto) 57.0 Lymph % (Auto) 31.3 [place] % (Auto) 8.7 Eos % (Auto) 2.1 Baso % (Auto) 0.7 Neut # (Auto) 5.1 Lymph # (Auto) 2.8 [place] # (Auto) 0.8 Eos # (Auto) 0.2 Baso # (Auto) 0.1 Immature Gran % 0.2 Nucleated RBC % 0.0 Immature Gran # 0.02 Nucleated RBCs # 0.00 Sodium 140 Potassium 4.9 Chloride 105 Carbon Dioxide 26 Anion Gap 13.9 BUN 26 H Creatinine 2.40 H GFR Calculation 27 BUN/Creatinine Ratio 10.00 Glucose 71 L Calculated Osmolality 281.4 Calcium 9.2 Magnesium 2.4 Isha Bauer Michael, MD, personally performed the services described in this documentation, ascribed by Lizzie Lewis RN in my presence, and it is both accurate and complete .
[2017-04-10] MEDS: METOPROLOL TARTRATE 25 MG TABLET PO SCH (20:53)
[2017-04-10] MEDS: MAGNESIUM HYDROXIDE SUSP 30 ML UDCUP PO PRN (20:54)
[2017-04-11] MEDS: LEVOTHYROXINE 100 MCG TABLET PO SCH (06:12)
--- NOTE | 2017-04-11 08:43 | Gastrointestinal Progress Note ---
<Tiffanie Spann - Last Filed: 04/11/17 08:40> Assessment and Plan (1) Nausea Status: Inactive Assessment and plan: 04/11-EGD findings noted. Nausea improved, tolerating diet. Plan and addendum to follow by Dr Calvillo. 04/09-Three to four month history of nausea with 4 pd weight loss. Hx of PUD. Findings of gallstones w/o cholecystitis. No labwork or new imaging available at this time. No EGD planned for today. May start clear liquid diet. Plan and addendum to follow by Dr Calvillo. Current Visit: Yes Gastroenterology - PN: Subj Interval history: CC: Nausea Pt is seen, awake and alert, sitting on side of bed. States he is feeling a little better today with less nausea. He has eaten regular diet this morning and ate 100%. He denies any abdominal pain. His EGD findings noted with GERD and gastritis. His HIDA scan results also noted with EF of 34%, down from 74% two years prior. He states he has not been taking his Prilosec at home but denies any reflux symptoms. Abdomen is soft, nontender. He is still concerned about no bowel movement x 4 days however was given Mag citrate last night. ROS: Denies SOB or chest pain Exam (Progress Note) - Constitutional Vitals: Period Temp Pulse Resp BP Sys/Taylor Pulse Ox Last 24 Hr 96.8 F-98.8 F 62-96 16-23 94-185/64-120 96-100 General appearance: normal weight, no acute distress - Head Head exam: Present: normal inspection, normocephalic - Eye Eye exam: Present: other (lids and conjunctiva unremarkable). Absent: scleral icterus - ENT ENT exam: Present: normal exam, normal oropharynx - Neck Neck exam: Present: normal inspection - Respiratory Respiratory exam: Present: clear to auscultation bilaterally. Absent: rales, rhonchi, wheezes - Cardiovascular Cardiovascular exam: Present: regular rate and rhythm. Absent: diastolic murmur , JVD, systolic murmur - GI/Abdominal GI/Abdominal exam: Present: normal bowel sounds, soft. Absent: ascites, distended, mass, organomegaly, tenderness - Extremities Exam Extremities exam: Present: normal inspection, full ROM - Back Exam Back exam: Present: normal inspection - Neurological Exam Neurological exam: Present: alert, oriented X3 - Psychiatric Psychiatric exam: Present: normal affect, normal mood - Skin Skin exam: Present: normal color, warm, dry Results - Labs CBC & BMP: 04/10/17 05:01 04/10/17 05:01 Lab Results: I have reviewed the past 24 hour labs <Bao Calvillo - Last Filed: 04/11/17 19:12> Exam (Progress Note) - Constitutional Vitals: Period Temp Pulse Resp BP Sys/Taylor Pulse Ox Last 24 Hr 97.7 F-98.8 F 62-77 16-20 111-140/73-85 94-98 Results - Labs CBC & BMP: 04/10/17 05:01 04/10/17 05:01
[2017-04-11] MEDS: MAGNESIUM HYDROXIDE SUSP 30 ML UDCUP PO PRN ×2 (08:48→21:05)
[2017-04-11] MEDS: ChlordiazePOXIDE/CLIDINIUM 5-2.5 MG CAPSULE PO SCH ×3 (08:48→16:52)
[2017-04-11] MEDS: PANTOPRAZOLE 40 MG TABLET PO SCH (08:49)
[2017-04-11] MEDS: DOCUSATE SODIUM 100 MG CAPSULE PO SCH ×2 (08:49→21:04)
[2017-04-11] MEDS: TAMSULOSIN 0.4 MG CAPSULE PO SCH (08:49)
[2017-04-11] MEDS: METOPROLOL TARTRATE 50 MG TABLET PO SCH (08:49)
--- NOTE | 2017-04-11 10:18 | Pulmonology Progress Note ---
Pulmonary - PN: Subj Interval history: Jayden Valiente, ANP-BC, GNP-BC, acting as scribe for Dr. Serigo Alan This is an 86-year-old white male. He is a longtime patient of Dr. Alan. He was admitted to the hospital 04/09/2017. At the time of admission, our impressions were: 1. Food aversion and loss of appetite with weight loss and persistent recurrent nausea. Etiology undetermined. Look for problems with gastric emptying through the Sara-en-Y. Note the patient had a single gallstone without evidence of obstruction. Look for gallbladder dysfunction. 04/09/2017, HIDA scan showed an ejection fraction of approximately 35%. 2. Hypothyroidism. On replacement. 3. Atrial fib with a history of rapid response and acute diastolic congestive heart failure. Now under good control 4. Hypertension. Good control 5. Rheumatoid arthritis 6. Chronic anticoagulation with Eliquis 7. 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 8. Chronic renal failure. Recent creatinines have been 2.4, 2.53, 2.60 and on 04/03/2017 creatinine was 2.70 9. Hyper lipid 10. BPH. Recent straining. Previous prostate surgery 11. Pernicious anemia secondary to B12 deficiency. 12. Hiatal hernia with gastroesophageal reflux disease 13. Degenerative joint disease 14. Mild mitral regurgitation with tricuspid regurgitation and normal pulmonary artery pressures . Echocardiogram done by Dr. Trejo March 2016 showed an ejection fraction of 55%, +2 mitral regurgitation, trace of pulmonic regurgitation, mild to moderate tricuspid regurgitation. I appreciate Dr. Sterling Vieira seen the patient in cardiology consultation. 15. Previous trach. 16. Degenerative joint disease. 17. See past history. 04/10/2017. Patient had some confusion overnight. This is resolved. He said he woke up and he could not figure out where he was. Dr. Bearden and I have reviewed the case and coordinated our care. Patient's for knee scope this morning. HIDA scan is negative. TSH is elevated with a free T4 in the normal range. The patient's on Synthroid 100 mcg daily. I will check with them to make sure he does not miss some doses. Labs been reviewed. Medicines have been reviewed. 04/11/2017. The patient was seen today along with his . EGD was done yesterday by Dr. Calvillo. This showed gastroesophageal reflux disease, mild gastritis diffusely throughout the stomach, and small hiatal hernia. HIDA scan showed minimally reduced gallbladder ejection fraction of 34% as compared to 74 % on May 04, [address] the abdomen and pelvis done 04/03/[address] evidence of acute cholecystitis. In speaking with the patient today, he was able to eat 100% of his breakfast. He has had no nausea this morning. Certainly, if we can get by with medication instead of surgical intervention this is favored. We will leave the final determination of this up to Dr. Calvillo. He is being seen in nephrology consultation by Dr. Bearden. He is being followed from a cardiology standpoint by Dr. Vieira. Medications have been reviewed. Patient takes his [place] scheduled one half tablet twice daily. We have adjusted his medicine to represent this. Labs have been reviewed. No new labs were drawn today. Exam (Progress Note) - Constitutional Vitals: Period Temp Pulse Resp BP Sys/Taylor Pulse Ox Last 24 Hr 97.4 F-98.8 F 62-80 16-22 94-174/64-100 96-98 Exam: Chest is clear Heart no gallop Abdomen is nontender and nondistended; bowel sounds are positive 4 Extremities with nothing to suggest acute deep venous thrombophlebitis Psychiatric oriented 3 Neurologic long-term motor function is intact Plan: We will defer medication recommendations versus surgical intervention to Dr. Calvillo. Again, if this patient can be treated medically we would favor that. Continue present treatment. We have asked patient to be more ambulatory today. Assuming no surgical intervention is needed, he may be ready for discharge tomorrow. Results - Labs CBC & BMP: 04/10/17 05:01 04/10/17 05:01
--- NOTE | 2017-04-11 11:16 | Nephrology Progress Note ---
Nephrology - PN: Subj Interval history: Pt ate all of breakfast. Some continued nausea, bloating. Creatinine stable to improved at 2.4. In good spirits. May be discharged today. Exam (PN)-Nephrology - Vital Signs Vital signs: Period Temp Pulse Resp BP Sys/Taylor Pulse Ox Last 24 Hr 97.4 F-98.8 F 62-80 16-20 94-161/64-98 96-98 - General Appearance General appearance: well-developed, chronically ill EENT: ATNC, PERRL, mucous membranes moist, hearing intact, vision intact Neck: no JVD, no thyromegaly Respiratory: no kyphosis, clear Cardiology: no murmurs, no rub, no edema Gastrointestinal: normoactive bowel sounds, no tenderness Integumentary: no rash, warm and dry Neurologic: no focal deficit, no asterixis, alert and oriented x3 Musculoskeletal: no deformities, no erythema Psychiatric: mood/affect appropriate, cooperative - Lab 04/10/17 05:01 04/10/17 05:01 Most recent lab results Calcium 9.2 MG/DL (8.5-10.1) 04/10/17 05:01 Magnesium 2.4 MG/DL (1.8-2.4) 04/10/17 05:01 Assessment and Plan (1) CKD (chronic kidney disease) stage 4, GFR 15-29 ml/min Problem details: Renally dose all meds for eGFR 25cc/min. Avoid hypotension, NSAIDs, aminoglycosides if possible. Status: Chronic Assessment and plan: The patient confirms that if the indication for renal replacement (i.e. dialysis ) arose, he would not want dialysis. Renally dose all meds for eGFR 25cc/min. Avoid nephrotoxins to include NSAIDs, aminoglycosides and IV contrast if possible. Avoid hypotension, volume depletion. Current Visit: Yes (2) Abdominal pain Problem details: No etiology found to date. Still present. Hx of trinh en y procedure in past for pancreatic surgery. Consider small intestinal bacterial overgrowth syndrome and an empiric course of antibiotics for 10d. (Rifaximin 1650mg/d x 10days or cipro). If considered, dose for renal function of 25cc/ min. Status: Acute Current Visit: Yes (3) Nausea Status: Acute Current Visit: Yes
--- NOTE | 2017-04-11 14:26 | Cardiology Progress Note ---
I, Lizzie Lewis RN, am scribing for, and in the presence of, Sterling Vieira MD 14:26. Assessment and Plan (1) Chronic atrial fibrillation Status: Chronic Assessment and plan: His chronic atrial fibrillation which is asymptomatic and well controlled. From a cardiac standpoint he is well compensated. He is back on his anticoagulation. I am not can make any further changes at this time. I am going to drop off his case. If I can be of further assistance please call. Current Visit: Yes (2) Chronic anticoagulation Status: Chronic Assessment and plan: He is on Eliquis. Current Visit: Yes (3) Nausea Status: Inactive Assessment and plan: This is been evaluated by gastroenterology and seems much better. Current Visit: Yes (4) History of stroke Status: Chronic Current Visit: No (5) CKD (chronic kidney disease) stage 4, GFR 15-29 ml/min Problem details: Renally dose all meds for eGFR 25cc/min. Avoid hypotension, NSAIDs, aminoglycosides if possible. Status: Chronic Current Visit: Yes (6) Cholelithiasis Status: Inactive Current Visit: Yes (7) HTN, goal below 140/90 Problem details: Not at goal. Status: Chronic Current Visit: Yes Cardiology - PN: Subj Interval history: Vehicle Return Associate: Dr. Trejo Mr. Barnett is seen resting in bed in no acute distress. He reports he ate breakfast and has had no nausea and very little abdominal discomfort since. He denies any chest pain, shortness of breath, or dizziness. He is doing well from a cardiac standpoint. He is not having any angina, palpitations, or heart failure symptoms right now. His blood pressure are improved. Current Medications Hydrocodone Bitart/Acetaminophen ([place] 10-325) 0.5 tablet PO DAILY@1600 [facility] Hydrocodone Bitart/Acetaminophen ([place] 10-325) 0.5 tablet PO DAILY@0600 [facility] Apixaban (Eliquis) 2.5 mg PO BID [facility] Chlordiazepoxide/Clidinium (Librax) 1 capsule PO TIDAC [facility] Last Admin: 04/11/17 11:00 Dose: 1 capsule Digoxin (Lanoxin Tab) 0.25 mg PO MoWeFr@1300 [facility] Last Admin: 04/10/17 12:14 Dose: 0.25 mg Docusate Sodium (Colace Cap) 100 mg PO BID [facility] Last Admin: 04/11/17 08:49 Dose: 100 mg Furosemide (Lasix Tab) 20 mg PO DAILY PRN PRN Reason: Edema Levothyroxine Sodium (Synthroid Tab) 100 mcg PO DAILY@0700 [facility] Last Admin: 04/11/17 06:12 Dose: 100 mcg Magnesium Hydroxide (Milk Of Magnesia) 30 ml PO BID PRN PRN Reason: Constipation Last Admin: 04/11/17 08:48 Dose: 30 ml Metoprolol Tartrate (Lopressor Tab) 50 mg PO DAILY [facility] Last Admin: 04/11/17 08:49 Dose: 50 mg Metoprolol Tartrate (Lopressor Tab) 25 mg PO DAILY@2100 [facility] Last Admin: 04/10/17 20:53 Dose: 25 mg Pantoprazole Sodium (Protonix Tab) 40 mg PO DAILY [facility] Last Admin: 04/11/17 08:49 Dose: 40 mg Tamsulosin HCl (Flomax) 0.4 mg PO DAILY [facility] Last Admin: 04/11/17 08:49 Dose: 0.4 mg Exam (Progress Note) - Constitutional Vitals: Period Temp Pulse Resp BP Sys/Taylor Pulse Ox Last 24 Hr 97.7 F-98.8 F 62-80 16-20 94-124/64-79 96-98 General appearance: normal weight, no acute distress - Head Head exam: Absent: abrasion, hematoma - Eye Eye exam: Absent: periorbital swelling, laceration to eyelids - Neck Neck exam: Absent: tenderness - Respiratory Respiratory exam: Present: clear to auscultation bilaterally. Absent: accessory muscle use, chest wall tenderness - Cardiovascular Cardiovascular exam: Present: irregular rhythm - GI/Abdominal GI/Abdominal exam: Present: normal bowel sounds, tenderness, soft. Absent: distended - Extremities Exam Extremities exam: Absent: edema - Neurological Exam Neurological exam: Present: alert, oriented X3 - Psychiatric Psychiatric exam: Present: normal affect, normal mood - Skin Skin exam: Present: warm, dry Result/EKG - Labs CBC & BMP: 04/10/17 05:01 04/10/17 05:01 Lab Results: I have reviewed the past 24 hour labs IIsha Michael, MD, personally performed the services described in this documentation, ascribed by Lizzie Lewis RN in my presence, and it is both accurate and complete [id number] .
[2017-04-11] MEDS: APIXABAN 2.5 MG TABLET PO SCH (21:05)
[2017-04-11] MEDS: METOPROLOL TARTRATE 25 MG TABLET PO SCH (21:05)
[2017-04-11] MEDS ORDERED: SODIUM PHOSPHATE ENEMA 133 ML BOTTLE RECTAL ONE (23:34)
[2017-04-12] MEDS: LEVOTHYROXINE 100 MCG TABLET PO SCH (06:02)
[2017-04-12] MEDS: ChlordiazePOXIDE/CLIDINIUM 5-2.5 MG CAPSULE PO SCH (08:00)
[2017-04-12] MEDS: METOPROLOL TARTRATE 50 MG TABLET PO SCH (09:10)
[2017-04-12] MEDS: PANTOPRAZOLE 40 MG TABLET PO SCH (09:11)
[2017-04-12] MEDS: APIXABAN 2.5 MG TABLET PO SCH (09:11)
[2017-04-12] MEDS: TAMSULOSIN 0.4 MG CAPSULE PO SCH (09:11)
[2017-04-12] MEDS: DOCUSATE SODIUM 100 MG CAPSULE PO SCH (09:11)
[2017-04-12] MEDS ORDERED: ChlordiazePOXIDE/CLIDINIUM 5-2.5 MG CAPSULE PO PRN (09:39)
--- NOTE | 2017-04-12 09:51 | Pulmonology Progress Note ---
Pulmonary - PN: Subj Interval history: Jayden Valiente, ANP-BC, GNP-BC, acting as scribe for Dr. Sergio Alan This is an 86-year-old white male. He is a longtime patient of Dr. Alan. He was admitted to the hospital 04/09/2017. At the time of admission, our impressions were: 1. Food aversion and loss of appetite with weight loss and persistent recurrent nausea. Etiology undetermined. Look for problems with gastric emptying through the Sara-en-Y. Note the patient had a single gallstone without evidence of obstruction. Look for gallbladder dysfunction. 04/09/2017, HIDA scan showed an ejection fraction of approximately 35%. 2. Hypothyroidism. On replacement. 3. Atrial fib with a history of rapid response and acute diastolic congestive heart failure. Now under good control 4. Hypertension. Good control 5. Rheumatoid arthritis 6. Chronic anticoagulation with Eliquis 7. 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 8. Chronic renal failure. Recent creatinines have been 2.4, 2.53, 2.60 and on 04/03/2017 creatinine was 2.70 9. Hyper lipid 10. BPH. Recent straining. Previous prostate surgery 11. Pernicious anemia secondary to B12 deficiency. 12. Hiatal hernia with gastroesophageal reflux disease 13. Degenerative joint disease 14. Mild mitral regurgitation with tricuspid regurgitation and normal pulmonary artery pressures . Echocardiogram done by Dr. Trejo March 2016 showed an ejection fraction of 55%, +2 mitral regurgitation, trace of pulmonic regurgitation, mild to moderate tricuspid regurgitation. I appreciate Dr. Sterling Vieira seen the patient in cardiology consultation. 15. Previous trach. 16. Degenerative joint disease. 17. See past history. 04/10/2017. Patient had some confusion overnight. This is resolved. He said he woke up and he could not figure out where he was. Dr. Bearden and I have reviewed the case and coordinated our care. Patient's for knee scope this morning. HIDA scan is negative. TSH is elevated with a free T4 in the normal range. The patient's on Synthroid 100 mcg daily. I will check with them to make sure he does not miss some doses. Labs been reviewed. Medicines have been reviewed. 04/11/2017. The patient was seen today along with his . EGD was done yesterday by Dr. Calvillo. This showed gastroesophageal reflux disease, mild gastritis diffusely throughout the stomach, and small hiatal hernia. HIDA scan showed minimally reduced gallbladder ejection fraction of 34% as compared to 74 % on May 04, [address] the abdomen and pelvis done 04/03/[address] evidence of acute cholecystitis. In speaking with the patient today, he was able to eat 100% of his breakfast. He has had no nausea this morning. Certainly, if we can get by with medication instead of surgical intervention this is favored. We will leave the final determination of this up to Dr. Calvillo. He is being seen in nephrology consultation by Dr. Bearden. He is being followed from a cardiology standpoint by Dr. Vieira. 04/12/2017. Patient was seen today along with his and Flavia Pierre RN. He is able to eat breakfast this morning. He has had no nausea. He did have significant constipation last night and required manual evacuation of stool. He takes scheduled [place] for pain which certainly potentiate constipation. Will start Cytotec 200 mcg daily. We discussed possibility of the addition of Actigall with the patient. He is currently asymptomatic. His EF on HIDA scan was 34%. All things considered, we will hold off on the addition of Actigall at this time. He can be added later if needed. Medications have been reviewed. Labs have been reviewed. No new labs were drawn today. Exam (Progress Note) - Constitutional Vitals: Period Temp Pulse Resp BP Sys/Taylor Pulse Ox Last 24 Hr 97.7 F-98.5 F 74-83 16-20 127-146/80-86 94-96 Exam: Chest is clear Heart no gallop Abdomen is nontender and nondistended; bowel sounds are positive 4 Extremities with nothing to suggest acute deep venous thrombophlebitis Psychiatric oriented 3 Neurologic long-term motor function is intact Plan: He is back to his baseline. He is met maximum hospital benefit. He will be discharged home. Please see my discharge summary dated 04/12/2017. Results - Labs CBC & BMP: 04/10/17 05:01 04/10/17 05:01 Specialty Discharge - Follow Up or Referrals Follow up with: Arnie Trejo MD [Physician] - 05/15/17 1:30 pm (with ekg )
--- NOTE | 2017-04-12 09:57 | Discharge Summary ---
Hospital Course - Hospital Course Hospital Course: Jayden Valiente, ANP-BC, GNP-BC, acting as scribe for Dr. Sergio Alan Mr. Pink is an 86-year-old white male who was admitted 04/09/2017 with food aversion, anorexia, weight loss, and persistent recurrent nausea of undetermined etiology. He was seen in GI consultation by Dr. Calvillo. HIDA scan done 04/10/2017 showed minimally reduced gallbladder ejection fraction of 34% as compared to 74% on the May 04, 2015 study. On 04/10/2017 the patient underwent EGD by Dr. Calvillo. This showed gastroesophageal reflux disease, mild gastritis diffusely throughout the stomach without ulcers, and a small hiatal hernia in the distal esophagus. It was suggested that the patient resume his PPI. He had not been taking it routinely at home. He needs to follow a strict antireflux precautions and to avoid nonsteroidals. During this hospitalization, the patient's nausea has subsided. He is eating well. He has had no more abdominal pain. The possibility of the addition of Actigall was raised, but given his advanced age and present medications in the face of no symptoms presently, we will hold off for now. This can be added at a later date if needed. This was discussed with patient and his to their understanding and they are in full agreement. He was seen in nephrology consultation by Dr. Bearden. Creatinine at admission was 2.50 and at discharge is 2.40 this is stable. The night prior to discharge the patient had significant symptomatic constipation. He required manual evacuation of his bowel by nursing staff. He does take scheduled Valmeyer twice a day for generalized pain. In light of this, we started Cytotec 200 mcg daily. At discharge, white count is 8900 with 57.0% segs, 31.3% lymphs, and 8.7% monos ; H&H 15.5/46.0 with normal indices and normal red blood cell distribution with ; platelet count 255,000; creatinine 2.40, BUN 26, sodium 140, potassium 4.9, magnesium 2.4; liver function tests within normal limits; calcium 9.2, albumin 3.2, total protein 6.7; amylase and lipase were normal at 108 and 230.0 respectively; TSH was elevated at 6.280 but free T4 was normal at 1.14; digoxin level at admission 0.80; urinalysis showed no evidence of infection. For more information regarding Mr. Pink' past medical history, social history , family history, past procedures, admit labs, admit x-rays and admit exam, please see the admission note dated 04/09/2017. Impression: 1. Food aversion and loss of appetite with weight loss and persistent recurrent nausea felt secondary to gastritis and gastroesophageal reflux. Resolved. Note the patient had a single gallstone without evidence of obstruction on CT of the abdomen done 04/03/2017. On 04/09/2017, HIDA scan showed an ejection fraction of approximately 35%. 2. Hypothyroidism. On replacement. 3. Atrial fib with a history of rapid response and acute diastolic congestive heart failure. Now under good control 4. Hypertension. Good control 5. Rheumatoid arthritis 6. Chronic anticoagulation with Eliquis 7. 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 8. Chronic renal failure. Stable. 9. Hyperlipidemia 10. BPH. Recent straining. Previous prostate surgery 11. Pernicious anemia secondary to B12 deficiency. 12. Hiatal hernia with gastroesophageal reflux disease 13. Degenerative joint disease 14. Mild mitral regurgitation with tricuspid regurgitation and normal pulmonary artery pressures . Echocardiogram done by Dr. Trejo March 2016 showed an ejection fraction of 55%, +2 mitral regurgitation, trace of pulmonic regurgitation, mild to moderate tricuspid regurgitation. 15. Previous tracheostomy 16. Degenerative joint disease. 17. Chronic constipation exacerbated by routine narcotic use 18. See past history. Plan: Eliquis 2.5 mg twice daily, Librax 1 capsule before meals 3 times daily as needed abdominal pain/cramping, digoxin 0.25 mg on Saturday and Saturday, Colace 100 mg twice daily, Lasix 20 mg daily as needed edema, Valmeyer 10/ 325 one half tablet twice daily, Synthroid 100 mcg daily, Lopressor 50 mg every morning and 25 mg every evening, Cytotec 200 mcg daily, Protonix 40 mg daily, Flomax 0.4 mg daily, and PreserVision 1 daily. He can keep his regularly scheduled follow-up appointment with Dr. Alan. He can be seen sooner if needed. Specialty Discharge - Follow Up or Referrals Follow up with: Arnie Trejo MD [Physician] - 05/15/17 1:30 pm (with ekg ) Sergio Alan MD [Primary Care Provider] - (Keep already scheduled appointment) Discharge Plan - Discharge Data Disposition: Disch To Home/Self Care Condition at Discharge: Stable Discharge Diet: advance to your usual diet Activity: resume usual activities as tolerated - Discharge Medications New Pantoprazole Tab [Protonix Tab] 40 mg PO DAILY #90 tablet Tamsulosin [Flomax] 0.4 mg PO DAILY #90 capsule miSOPROStol [Cytotec] 200 mcg PO DAILY #90 tablet Continue Metoprolol Succinate 50 mg PO QAM Metoprolol Succinate 25 mg PO QPM Apixaban [Eliquis] 2.5 mg PO BID #60 tablet Docusate Sodium Cap [Colace Cap] 100 mg PO BID capsule Tamsulosin [Flomax] 0.4 mg PO DAILY Levothyroxine Tab [Synthroid Tab] 100 mcg PO DAILY@0700 Vit C/Vit E AC/Lut/Copper/Zinc [Preservision Lutein Softgel] 1 tablet PO DAILY Digoxin 0.25 mg PO DIRECTED ChlordiazePOX/CLIDINIUM 5-2.5 [Librax] 5 mg PO TIDAC Furosemide Tab [Lasix Tab] 20 mg PO DAILY PRN PRN Reason: Edema Discontinued HYDROcodone/ACETAMIN 5-325 [Valmeyer 5-325] 10 mg PO BID PRN PRN Reason: Pain - Follow Up or Referral Follow Up: Arnie Trejo MD [Physician] - 05/15/17 1:30 pm (with ekg ) - Forms/Instructions Instructions: Constipation (DC), Chronic Hypertension (DC) Exam - Constitutional Vitals: Period Temp Pulse Resp BP Sys/Taylor Pulse Ox Last 24 Hr 97.7 F-98.5 F 74-83 16-20 127-146/80-86 94-96 DS: Provider Date of admission: 04/09/17 06:42 Primary care physician: Sergio Alan MD Attending physician on admission: Sergio Alan MD Consults: 04/03/17 13:17 Consult to Physician [CONS] Routine Comment: CRF; possible surgery Consulting Provider: Valentin Bearden Person Notified: md [email or web address] Date Notified: 04/09/17 Time Notified: 10:42 Consult to Physician [CONS] Routine Comment: Cardiac eval for possible GB surgery Consulting Provider: Arnie Trejo Person Notified: MATTHEW Date Notified: 04/09/17 Time Notified: 09:04 04/03/17 13:20 Consult to Physician [CONS] Routine Comment: Eval for EGD, gallstones Consulting Provider: Bao Calvillo Person Notified: NAIN GRANDE Date Notified: 04/09/17 Time Notified: 09:14 04/09/17 07:23 Consult to Dietitian [CONS] Routine Reason for Dietitian: Dietary Consult Discharging clinician: TOVA Simental
[2017-04-12] MEDS ORDERED: miSOPROStol 200 MCG TABLET PO SCH (10:00)
[2017-04-12 12:25] VITALS: BP 138/76
== END 2017-04-12 11:45 | disposition home or self-care (01) | DRG 392 ==
LOC: EDSTATUS 05:00 → N.5E 06:42
PROVIDERS: ADMIT Internal Medicine Pulmonary Disease; ATTEND Internal Medicine Pulmonary Disease

== ENCOUNTER 2018-04-17 14:24 | Inpatient (IN) ==
[2018-04-17] MEDS ORDERED: SODIUM CHLORIDE 0.9% 1,000 ML IV STA (15:02)
[2018-04-17 15:31] LABS: Basophils # 0.1 10*3/uL (0.0-0.2); Basophils % 0.5 % (0.0-0.8); Eosinophils # 0.1 10*3/uL (0.0-0.87); Eosinophils % 1.2 % (0.00-10.9); Hematocrit 45.9 VOL% (42.0-52.0); Hemoglobin 15.3 GM/DL (14.0-18.0); Immature Granulocytes % 0.4 %; Immature Granulocytes Absolute 0.05 #; Lymphocytes # 2.9 10*3/uL (1.4-4.0); Lymphocytes % 25.1 % (21.2-54.2); Mean Corpuscular HGB Conc 33.3 GM/DL (32-36); Mean Corpuscular Hemoglobin 32 PG (27-34); Mean Corpuscular Volume 96.8 FL (87-102); Mean Platelet Volume 12.5 FL (9.6-12.0); Monocytes # 0.9 10*3/uL (0.11-0.8); Neutrophils # 7.4 10*3/uL (1.4-7.4); Neutrophils % 64.8 % (38.7-73.9); Platelet Count 218 T/CUMM (130-400); Red Blood Count 4.74 MC/CUMM (3.8-5.5); Red Cell Distribution Width 13.1 % (9.3-17.3); White Blood Count 11.4 T/CUMM (4-12)
[2018-04-17 15:32] LABS: Apearance,Urine CLEAR (Clear); Bilirubin,Urine Negative (Negative); Blood, Urine Negative (Negative); Glucose,Urine (UA) Negative (Negative); Hyaline Casts,Urine 1 /LPF (0-3); Ketones,Urine 5 mg/dL (Negative); Mucus,Urine Occasional /LPF (Occasional); Nitrite,Urine Negative (Negative); Protein,Urine >=500 MG/DL; RBC,Urine <1 /HPF (0-4); Squamous Epithelial Cell,Urine Occasional /HPF (0-10); Urine Color Yellow (Yellow); Urine Specific Gravity 1.016 (1.001-1.035); WBC,Urine 2 /HPF (0-6)
[2018-04-17 15:49] LABS: Albumin 3.2 G/DL (3.4-5.0); Bilirubin,Total 0.9 MG/DL (0.2-1.0); Osmolality,Calculated 276.8 MOS/KG (273-304); Potassium 4.9 MMOL/L (3.5-5.1); Total Protein 7.8 G/DL (6.4-8.3)
[2018-04-17 16:28] LABS: INR 1.6; PT Patient Result 16.3 SECS
[2018-04-17 16:42] LABS: Free T4 (Free Thyroxine) 1.22 NG/DL (0.76-1.46); Thyroid Stimulating Hormone 2.11 uIU/ml (0.358-3.74)
[2018-04-17] MEDS ORDERED: diphenhydrAMINE CAP 25 MG CAPSULE PO PRN (17:46)
[2018-04-17] MEDS ORDERED: DOCUSATE SODIUM 100 MG CAPSULE PO PRN (17:46)
[2018-04-17] MEDS ORDERED: ACETAMINOPHEN 325 MG TABLET PO PRN (17:46)
[2018-04-17] MEDS ORDERED: guaiFENesin/DM ER 600-30 MG TABLET PO PRN (17:46)
[2018-04-17] MEDS ORDERED: hydrALAZINE 20 MG/1 ML VIAL IV STA (18:02)
[2018-04-17] MEDS ORDERED: hydrALAZINE 20 MG/1 ML VIAL ONE (18:16)
[2018-04-17] MEDS ORDERED: ENOXAPARIN 60 MG/0.6 ML SYRINGE SUBCUT ONE (18:39)
[2018-04-17] MEDS ORDERED: NIFEdipine 10 MG CAPSULE PO PRN (18:39)
[2018-04-17] MEDS ORDERED: hydrALAZINE 20 MG/1 ML VIAL IV PRN (18:48)
[2018-04-17] MEDS ORDERED: FUROSEMIDE 20 MG TABLET PO PRN (18:49)
[2018-04-17] MEDS ORDERED: ONDANSETRON 4 MG TABLET PO PRN (18:49)
[2018-04-17] MEDS ORDERED: amLODIPine 2.5 MG TABLET PO PRN (18:49)
[2018-04-17] MEDS ORDERED: TAMSULOSIN 0.4 MG CAPSULE PO PRN (18:49)
[2018-04-17] MEDS ORDERED: ChlordiazePOXIDE/CLIDINIUM 5-2.5 MG CAPSULE PO PRN (21:00)
[2018-04-17] MEDS ORDERED: ceFAZolin 500 MG in SYRINGE 1 EACH IV SCH (21:00)
[2018-04-17] MEDS: DOCUSATE SODIUM 100 MG CAPSULE PO SCH (21:51)
[2018-04-17] MEDS: METOPROLOL TARTRATE 25 MG TABLET PO SCH (21:51)
[2018-04-17] MEDS: SODIUM CHLORIDE 0.9% 1,000 ML IV SCH (21:54)
[2018-04-17] MEDS: ceFAZolin 500 MG in SYRINGE 1 EACH IV SCH (21:58)
[2018-04-17] MEDS: ONDANSETRON 4 MG/2 ML VIAL IV PRN (23:27)
[2018-04-18] MEDS: ONDANSETRON 4 MG/2 ML VIAL IV PRN (06:13)
[2018-04-18] MEDS: SODIUM CHLORIDE 0.9% 1,000 ML IV SCH ×2 (06:15→16:52)
[2018-04-18 10:07] LABS: Basophils # 0.1 10*3/uL (0.0-0.2); Basophils % 0.7 % (0.0-0.8); Eosinophils # 0.1 10*3/uL (0.0-0.87); Eosinophils % 0.6 % (0.00-10.9); Hematocrit 46.8 VOL% (42.0-52.0); Hemoglobin 15.4 GM/DL (14.0-18.0); Immature Granulocytes % 0.5 %; Immature Granulocytes Absolute 0.05 #; Lymphocytes # 2.2 10*3/uL (1.4-4.0); Lymphocytes % 21.9 % (21.2-54.2); Mean Corpuscular HGB Conc 32.9 GM/DL (32-36); Mean Corpuscular Hemoglobin 32 PG (27-34); Mean Corpuscular Volume 97.5 FL (87-102); Mean Platelet Volume 12.2 FL (9.6-12.0); Monocytes # 0.6 10*3/uL (0.11-0.8); Monocytes % 5.7 % (1.7-12.7); Neutrophils # 7.3 10*3/uL (1.4-7.4); Neutrophils % 70.6 % (38.7-73.9); Platelet Count 226 T/CUMM (130-400); Red Cell Distribution Width 13.1 % (9.3-17.3); White Blood Count 10.3 T/CUMM (4-12)
[2018-04-18 10:17] LABS: INR 1.5; PT Patient Result 15.6 SECS
[2018-04-18 10:23] LABS: Calcium 8.9 MG/DL (8.5-10.1); Osmolality,Calculated 285.4 MOS/KG (273-304); Potassium 4.2 MMOL/L (3.5-5.1)
[2018-04-18] MEDS ORDERED: cefOXitin 2,000 MG in SYRINGE 1 EACH IV ONE (10:24)
[2018-04-18 10:27] LABS: Albumin 3.2 G/DL (3.4-5.0); Bilirubin,Total 0.9 MG/DL (0.2-1.0); Calcium 8.9 MG/DL (8.5-10.1); Osmolality,Calculated 283.5 MOS/KG (273-304); Potassium 4.1 MMOL/L (3.5-5.1); Total Protein 7.4 G/DL (6.4-8.3)
[2018-04-18] MEDS: ceFAZolin 500 MG in SYRINGE 1 EACH IV SCH (10:37)
[2018-04-18] MEDS: METOPROLOL TARTRATE 50 MG TABLET PO SCH (10:41)
[2018-04-18] MEDS: LEVOTHYROXINE 100 MCG TABLET PO SCH (10:41)
[2018-04-18] MEDS: miSOPROStol 100 MCG TABLET PO SCH ×2 (10:41→17:01)
[2018-04-18] MEDS: MULTIVITAMIN (CENTRUM) TABLET PO SCH (10:42)
[2018-04-18] MEDS: DOCUSATE SODIUM 100 MG CAPSULE PO SCH ×2 (10:42→20:56)
[2018-04-18] MEDS ORDERED: TISSUE ADHESIVE 1 EACH APPLICATOR TOP ONE (11:29)
[2018-04-18] MEDS ORDERED: LIDOCAINE 1%/EPI INJ 20 ML VIAL ONE (11:30)
[2018-04-18] MEDS ORDERED: PROPOFOL 200 MG/20 ML VIAL IV ONE (13:11)
[2018-04-18] MEDS ORDERED: SEVOFLURANE 1 UNIT/15 MINUTE INH ONE (13:11)
[2018-04-18] MEDS ORDERED: MORPHINE 10 MG/1 ML VIAL ONE (13:12)
[2018-04-18] MEDS ORDERED: ONDANSETRON 4 MG/2 ML VIAL ONE (13:12)
[2018-04-18] MEDS ORDERED: GLYCOPYRROLATE 0.4 MG/2 ML VIAL ONE ×2 (13:12)
[2018-04-18] MEDS ORDERED: ESMOLOL 100 MG/10 ML VIAL IV ONE (13:12)
[2018-04-18] MEDS ORDERED: NEOSTIGMINE 10 MG/10 ML VIAL ONE (13:12)
[2018-04-18] MEDS ORDERED: SUCCINYLCHOLINE 200 MG/10 ML VIAL ONE (13:12)
[2018-04-18] MEDS ORDERED: fentaNYL 100 MCG/2 ML VIAL ONE (13:12)
[2018-04-18] MEDS ORDERED: hydrALAZINE 20 MG/1 ML VIAL ONE (13:12)
[2018-04-18] MEDS ORDERED: ROCURONIUM 100 MG/10 ML VIAL IV ONE (13:12)
[2018-04-18] MEDS ORDERED: PHENYLEPHRINE 1 MG/10 ML SYRINGE IV ONE (13:12)
[2018-04-18] MEDS ORDERED: SODIUM CHLORIDE 0.9% 100 ML IV ONE (13:13)
[2018-04-18] MEDS ORDERED: MIDAZOLAM 2 MG/2 ML VIAL ONE (13:18)
[2018-04-18] MEDS: MORPHINE 10 MG/1 ML VIAL IV PRN ×5 (13:20→13:48)
[2018-04-18] MEDS ORDERED: ONDANSETRON 4 MG/2 ML VIAL IV PRN (13:21)
[2018-04-18] MEDS ORDERED: ACETAMINOPHEN 1,000 MG/100 ML VIAL IV ONE (13:37)
[2018-04-18] MEDS ORDERED: ACETAMINOPHEN INJ 1,000 MG in PREMIX 1 EACH IV ONE (13:40)
[2018-04-18] MEDS ORDERED: hydrALAZINE 20 MG/1 ML VIAL IV ONE (13:43)
[2018-04-18] MEDS ORDERED: MORPHINE 4 MG/1 ML VIAL IV PRN (15:18)
[2018-04-18] MEDS ORDERED: DIGOXIN 0.25 MG TABLET PO SCH (18:49)
[2018-04-18] MEDS: METOPROLOL TARTRATE 25 MG TABLET PO SCH (20:56)
[2018-04-18] MEDS ORDERED: ceFAZolin 500 MG in SYRINGE 1 EACH IV SCH (21:30)
[2018-04-19] MEDS: SODIUM CHLORIDE 0.9% 1,000 ML IV SCH ×3 (00:04→16:47)
[2018-04-19 06:26] LABS: Basophils # 0.1 10*3/uL (0.0-0.2); Basophils % 0.5 % (0.0-0.8); Eosinophils # 0.1 10*3/uL (0.0-0.87); Eosinophils % 0.4 % (0.00-10.9); Hematocrit 43.7 VOL% (42.0-52.0); Hemoglobin 14.8 GM/DL (14.0-18.0); Immature Granulocytes % 0.4 %; Immature Granulocytes Absolute 0.05 #; Lymphocytes # 1.6 10*3/uL (1.4-4.0); Mean Corpuscular HGB Conc 33.9 GM/DL (32-36); Mean Corpuscular Hemoglobin 33 PG (27-34); Mean Platelet Volume 12.2 FL (9.6-12.0); Monocytes # 1.4 10*3/uL (0.11-0.8); Monocytes % 11.2 % (1.7-12.7); Neutrophils # 9.4 10*3/uL (1.4-7.4); Neutrophils % 74.5 % (38.7-73.9); Platelet Count 195 T/CUMM (130-400); Red Blood Count 4.55 MC/CUMM (3.8-5.5); Red Cell Distribution Width 13.4 % (9.3-17.3); White Blood Count 12.6 T/CUMM (4-12)
[2018-04-19] MEDS: LEVOTHYROXINE 100 MCG TABLET PO SCH (06:46)
[2018-04-19 07:02] LABS: Calcium 8.5 MG/DL (8.5-10.1); Osmolality,Calculated 281.5 MOS/KG (273-304); Potassium 4.4 MMOL/L (3.5-5.1); Potassium 4.5 MMOL/L (3.5-5.1)
[2018-04-19 07:05] LABS: Albumin 2.7 G/DL (3.4-5.0); Bilirubin,Direct 0.28 MG/DL (0.0-0.20); Bilirubin,Indirect 0.6 MG/DL (0.0-1.0); Bilirubin,Total 0.9 MG/DL (0.2-1.0); Total Protein 6.6 G/DL (6.4-8.3)
[2018-04-19] MEDS: DOCUSATE SODIUM 100 MG CAPSULE PO SCH ×2 (08:48→20:00)
[2018-04-19] MEDS: miSOPROStol 100 MCG TABLET PO SCH ×2 (08:48→16:41)
[2018-04-19] MEDS: MULTIVITAMIN (CENTRUM) TABLET PO SCH (08:49)
[2018-04-19] MEDS: METOPROLOL TARTRATE 50 MG TABLET PO SCH (08:49)
[2018-04-19] MEDS: ENOXAPARIN 80 MG/0.8 ML SYRINGE SUBCUT SCH (13:17)
[2018-04-19] MEDS: ONDANSETRON 4 MG/2 ML VIAL IV PRN (18:17)
[2018-04-19] MEDS: WARFARIN 4 MG TABLET PO SCH (18:18)
[2018-04-19] MEDS: METOPROLOL TARTRATE 25 MG TABLET PO SCH (20:02)
[2018-04-20] MEDS: SODIUM CHLORIDE 0.9% 1,000 ML IV SCH ×3 (01:00→23:04)
[2018-04-20] MEDS: LEVOTHYROXINE 100 MCG TABLET PO SCH (07:13)
[2018-04-20 07:17] LABS: Basophils # 0.1 10*3/uL (0.0-0.2); Basophils % 0.4 % (0.0-0.8); Eosinophils # 0.2 10*3/uL (0.0-0.87); Eosinophils % 1.3 % (0.00-10.9); Hematocrit 39.6 VOL% (42.0-52.0); Hemoglobin 13.6 GM/DL (14.0-18.0); Immature Granulocytes % 0.4 %; Immature Granulocytes Absolute 0.05 #; Lymphocytes # 1.7 10*3/uL (1.4-4.0); Lymphocytes % 13.6 % (21.2-54.2); Mean Corpuscular HGB Conc 34.3 GM/DL (32-36); Mean Corpuscular Hemoglobin 33 PG (27-34); Mean Corpuscular Volume 95.2 FL (87-102); Mean Platelet Volume 12.2 FL (9.6-12.0); Monocytes # 1.7 10*3/uL (0.11-0.8); Monocytes % 13.2 % (1.7-12.7); Neutrophils % 71.1 % (38.7-73.9); Platelet Count 178 T/CUMM (130-400); Red Blood Count 4.16 MC/CUMM (3.8-5.5); Red Cell Distribution Width 13.4 % (9.3-17.3); White Blood Count 12.6 T/CUMM (4-12)
[2018-04-20 07:25] LABS: INR 1.4; PT Patient Result 14.7 SECS
[2018-04-20 07:38] LABS: Calcium 8.3 MG/DL (8.5-10.1); Osmolality,Calculated 278.5 MOS/KG (273-304); Potassium 3.9 MMOL/L (3.5-5.1)
[2018-04-20] MEDS: miSOPROStol 100 MCG TABLET PO SCH ×2 (09:33→17:54)
[2018-04-20] MEDS: DOCUSATE SODIUM 100 MG CAPSULE PO SCH ×2 (09:34→20:45)
[2018-04-20] MEDS: MULTIVITAMIN (CENTRUM) TABLET PO SCH (09:34)
[2018-04-20] MEDS: ENOXAPARIN 80 MG/0.8 ML SYRINGE SUBCUT SCH (09:34)
[2018-04-20] MEDS: METOPROLOL TARTRATE 50 MG TABLET PO SCH (09:34)
[2018-04-20] MEDS ORDERED: BISACODYL 5 MG TABLET PO ONE (10:38)
[2018-04-20] MEDS: POLYETHYLENE GLYCOL POWDER 17 GM PACK PO SCH (11:06)
[2018-04-20] MEDS: WARFARIN 4 MG TABLET PO SCH (17:54)
[2018-04-20] MEDS: METOPROLOL TARTRATE 25 MG TABLET PO SCH (20:45)
[2018-04-21] MEDS: ONDANSETRON 4 MG/2 ML VIAL IV PRN ×2 (04:43→10:51)
[2018-04-21] MEDS: LEVOTHYROXINE 100 MCG TABLET PO SCH (06:01)
[2018-04-21 07:22] LABS: Basophils % 0.3 % (0.0-0.8); Eosinophils # 0.2 10*3/uL (0.0-0.87); Eosinophils % 1.5 % (0.00-10.9); Hematocrit 39.4 VOL% (42.0-52.0); Hemoglobin 13.5 GM/DL (14.0-18.0); Immature Granulocytes % 0.4 %; Immature Granulocytes Absolute 0.05 #; Lymphocytes # 1.4 10*3/uL (1.4-4.0); Lymphocytes % 11.1 % (21.2-54.2); Mean Corpuscular HGB Conc 34.3 GM/DL (32-36); Mean Corpuscular Hemoglobin 33 PG (27-34); Mean Corpuscular Volume 94.9 FL (87-102); Mean Platelet Volume 12.1 FL (9.6-12.0); Monocytes # 1.4 10*3/uL (0.11-0.8); Monocytes % 11.4 % (1.7-12.7); Neutrophils # 9.1 10*3/uL (1.4-7.4); Neutrophils % 75.3 % (38.7-73.9); Platelet Count 165 T/CUMM (130-400); Red Blood Count 4.15 MC/CUMM (3.8-5.5); Red Cell Distribution Width 13.3 % (9.3-17.3); White Blood Count 12.1 T/CUMM (4-12)
[2018-04-21 07:43] LABS: INR 1.3; PT Patient Result 13.4 SECS
[2018-04-21 07:54] LABS: Calcium 8.4 MG/DL (8.5-10.1); Osmolality,Calculated 276.7 MOS/KG (273-304); Potassium 3.7 MMOL/L (3.5-5.1)
[2018-04-21] MEDS: DOCUSATE SODIUM 100 MG CAPSULE PO SCH (08:07)
[2018-04-21] MEDS: METOPROLOL TARTRATE 50 MG TABLET PO SCH (08:07)
[2018-04-21] MEDS: miSOPROStol 100 MCG TABLET PO SCH (08:07)
[2018-04-21] MEDS: MULTIVITAMIN (CENTRUM) TABLET PO SCH (08:07)
[2018-04-21] MEDS: POLYETHYLENE GLYCOL POWDER 17 GM PACK PO SCH (08:08)
[2018-04-21] MEDS: ENOXAPARIN 80 MG/0.8 ML SYRINGE SUBCUT SCH (08:26)
[2018-04-21 11:51] VITALS: BP 163/93
[2018-04-21] MEDS: SODIUM CHLORIDE 0.9% 1,000 ML IV SCH (12:15)
[2018-04-23] MEDS ORDERED: WARFARIN 4 MG TABLET PO SCH (18:00)
== END 2018-04-21 12:35 | disposition home or self-care (01) | DRG 418 ==
LOC: N.ED 14:24 → SUATTDRO 17:43 → N.EDINP 17:43 → N.2E 19:43
PROVIDERS: ADMIT Internal Medicine; ATTEND Internal Medicine
PROC: LAPCHOL (2018-04-18 12:00)

== ENCOUNTER 2018-04-28 07:33 | Inpatient (IN) ==
[2018-04-28] MEDS ORDERED: ONDANSETRON 4 MG/2 ML VIAL IV STA (08:04)
[2018-04-28] MEDS ORDERED: SODIUM CHLORIDE 0.9% 1,000 ML IV STA (08:04)
[2018-04-28 09:12] LABS: Basophils # 0.1 10*3/uL (0.0-0.2); Basophils % 0.6 % (0.0-0.8); Eosinophils # 0.4 10*3/uL (0.0-0.87); Hematocrit 46.8 VOL% (42.0-52.0); Hemoglobin 15.6 GM/DL (14.0-18.0); Immature Granulocytes % 0.8 %; Immature Granulocytes Absolute 0.08 #; Lymphocytes # 2.2 10*3/uL (1.4-4.0); Lymphocytes % 20.8 % (21.2-54.2); Mean Corpuscular HGB Conc 33.3 GM/DL (32-36); Mean Corpuscular Hemoglobin 32 PG (27-34); Mean Corpuscular Volume 96.9 FL (87-102); Mean Platelet Volume 11.4 FL (9.6-12.0); Monocytes # 0.9 10*3/uL (0.11-0.8); Monocytes % 8.6 % (1.7-12.7); Neutrophils # 6.8 10*3/uL (1.4-7.4); Neutrophils % 65.2 % (38.7-73.9); Platelet Count 344 T/CUMM (130-400); Red Blood Count 4.83 MC/CUMM (3.8-5.5); Red Cell Distribution Width 13.1 % (9.3-17.3); White Blood Count 10.3 T/CUMM (4-12)
[2018-04-28 09:40] LABS: Albumin 3.1 G/DL (3.4-5.0); Bilirubin,Total 0.8 MG/DL (0.2-1.0); Calcium 9.1 MG/DL (8.5-10.1); Osmolality,Calculated 280.8 MOS/KG (273-304); Potassium 3.5 MMOL/L (3.5-5.1); Total Protein 7.2 G/DL (6.4-8.3)
[2018-04-28 10:07] LABS: Apearance,Urine CLEAR (Clear); Bacteria,Urine Occasional /HPF (Few); Bilirubin,Urine Negative (Negative); Blood, Urine Negative (Negative); Glucose,Urine (UA) Negative (Negative); Ketones,Urine Negative (Negative); Mucus,Urine Occasional /LPF (Occasional); Nitrite,Urine Negative (Negative); Protein,Urine 100 MG/DL; RBC,Urine 2 /HPF (0-4); Urine Color Yellow (Yellow); Urine Specific Gravity 1.009 (1.001-1.035); WBC,Urine 2 /HPF (0-6)
[2018-04-28] MEDS ORDERED: MORPHINE 4 MG/1 ML VIAL IV PRN (13:43)
[2018-04-28] MEDS ORDERED: DOCUSATE SODIUM 100 MG CAPSULE PO PRN (13:43)
[2018-04-28] MEDS ORDERED: BISACODYL 5 MG TABLET PO PRN (13:43)
[2018-04-28] MEDS ORDERED: ONDANSETRON 4 MG/2 ML VIAL IV PRN (13:43)
[2018-04-28] MEDS ORDERED: LACTULOSE 20 GM/30 ML UDCUP PO PRN (13:43)
[2018-04-28] MEDS ORDERED: ACETAMINOPHEN 325 MG TABLET PO PRN (13:43)
[2018-04-28] MEDS ORDERED: ZALEPLON 5 MG CAPSULE PO PRN (13:43)
[2018-04-28] MEDS ORDERED: ChlordiazePOXIDE/CLIDINIUM 5-2.5 MG CAPSULE PO PRN (13:45)
[2018-04-28] MEDS ORDERED: TAMSULOSIN 0.4 MG CAPSULE PO PRN (13:45)
[2018-04-28] MEDS ORDERED: ENOXAPARIN 30 MG/0.3 ML SYRINGE SUBCUT SCH (14:00)
[2018-04-28] MEDS ORDERED: CYANOCOBALAMIN 1000 MCG/1 ML VIAL IM SCH (14:00)
[2018-04-28] MEDS: SODIUM CHLORIDE 0.45% 1,000 ML IV SCH ×2 (14:52→23:02)
[2018-04-28 15:00] LABS: INR 1.9; PT Patient Result 19.8 SECS; Partial Thromboplastin Time 36.6 SECS (0-40)
[2018-04-28] MEDS: DIGOXIN 0.25 MG TABLET PO SCH (17:08)
[2018-04-28] MEDS ORDERED: WARFARIN 1 MG TABLET PO SCH (18:00)
[2018-04-28] MEDS ORDERED: SODIUM PHOSPHATE ENEMA 133 ML BOTTLE RECTAL ONE (18:18)
[2018-04-28] MEDS ORDERED: PANTOPRAZOLE 40 MG TABLET PO SCH (18:30)
[2018-04-28] MEDS ORDERED: SODIUM PHOSPHATE ENEMA 133 ML BOTTLE RECTAL PRN (19:00)
[2018-04-28] MEDS: miSOPROStol 100 MCG TABLET PO SCH (19:01)
[2018-04-28 19:53] LABS: Free T4 (Free Thyroxine) 1.28 NG/DL (0.76-1.46); Thyroid Stimulating Hormone 1.33 uIU/ml (0.358-3.74)
[2018-04-28 20:37] LABS: Apearance,Urine CLEAR (Clear); Bilirubin,Urine Negative (Negative); Blood, Urine Negative (Negative); Glucose,Urine (UA) Negative (Negative); Ketones,Urine Negative (Negative); Nitrite,Urine Negative (Negative); Protein,Urine 100 MG/DL; RBC,Urine 1 /HPF (0-4); Squamous Epithelial Cell,Urine Occasional /HPF (0-10); Urine Color Yellow (Yellow); Urine Specific Gravity 1.009 (1.001-1.035); WBC,Urine 1 /HPF (0-6)
[2018-04-28] MEDS: METOPROLOL TARTRATE 25 MG TABLET PO SCH (21:10)
[2018-04-28] MEDS: PANTOPRAZOLE 40 MG TABLET PO SCH (21:13)
[2018-04-29 06:11] LABS: Basophils # 0.1 10*3/uL (0.0-0.2); Basophils % 0.5 % (0.0-0.8); Eosinophils # 0.6 10*3/uL (0.0-0.87); Eosinophils % 3.5 % (0.00-10.9); Hematocrit 42.9 VOL% (42.0-52.0); Hemoglobin 14.6 GM/DL (14.0-18.0); Immature Granulocytes % 0.6 %; Lymphocytes # 2.3 10*3/uL (1.4-4.0); Lymphocytes % 13.9 % (21.2-54.2); Mean Corpuscular Hemoglobin 33 PG (27-34); Mean Corpuscular Volume 95.8 FL (87-102); Mean Platelet Volume 11.5 FL (9.6-12.0); Monocytes # 1.2 10*3/uL (0.11-0.8); Monocytes % 7.2 % (1.7-12.7); Neutrophils % 74.3 % (38.7-73.9); Platelet Count 365 T/CUMM (130-400); Red Blood Count 4.48 MC/CUMM (3.8-5.5); Red Cell Distribution Width 13.2 % (9.3-17.3); White Blood Count 16.1 T/CUMM (4-12)
[2018-04-29 06:37] LABS: Calcium 8.4 MG/DL (8.5-10.1); Osmolality,Calculated 280.7 MOS/KG (273-304); Potassium 3.1 MMOL/L (3.5-5.1)
[2018-04-29] MEDS: SODIUM CHLORIDE 0.45% 1,000 ML IV SCH ×2 (07:05→14:46)
[2018-04-29] MEDS ORDERED: LACTULOSE 20 GM/30 ML UDCUP PO ONE (09:33)
[2018-04-29] MEDS ORDERED: MAGNESIUM CITRATE 300 ML BOTTLE PO PRN (11:01)
[2018-04-29] MEDS: POLYETHYLENE GLYCOL POWDER 17 GM PACK PO SCH (11:23)
[2018-04-29] MEDS: miSOPROStol 100 MCG TABLET PO SCH ×2 (11:24→16:51)
[2018-04-29] MEDS: METOPROLOL TARTRATE 50 MG TABLET PO SCH (11:25)
[2018-04-29] MEDS: amLODIPine 5 MG TABLET PO SCH (11:25)
[2018-04-29] MEDS: PANTOPRAZOLE 40 MG TABLET PO SCH (11:26)
[2018-04-29] MEDS: MULTIVITAMIN (CENTRUM) TABLET PO SCH (11:26)
[2018-04-29] MEDS: POTASSIUM CHLORIDE 20 MEQ TABLET PO SCH ×2 (14:42→21:17)
[2018-04-29] MEDS: METOPROLOL TARTRATE 25 MG TABLET PO SCH (21:17)
[2018-04-30 06:33] LABS: Basophils # 0.1 10*3/uL (0.0-0.2); Basophils % 0.6 % (0.0-0.8); Eosinophils # 0.5 10*3/uL (0.0-0.87); Eosinophils % 3.5 % (0.00-10.9); Hematocrit 41.3 VOL% (42.0-52.0); Hemoglobin 13.7 GM/DL (14.0-18.0); Immature Granulocytes % 0.7 %; Lymphocytes # 2.5 10*3/uL (1.4-4.0); Lymphocytes % 16.1 % (21.2-54.2); Mean Corpuscular HGB Conc 33.2 GM/DL (32-36); Mean Corpuscular Hemoglobin 32 PG (27-34); Mean Corpuscular Volume 97.2 FL (87-102); Mean Platelet Volume 11.5 FL (9.6-12.0); Monocytes # 1.2 10*3/uL (0.11-0.8); Monocytes % 7.8 % (1.7-12.7); Neutrophils # 10.9 10*3/uL (1.4-7.4); Neutrophils % 71.3 % (38.7-73.9); Platelet Count 321 T/CUMM (130-400); Red Blood Count 4.25 MC/CUMM (3.8-5.5); Red Cell Distribution Width 13.1 % (9.3-17.3); White Blood Count 15.2 T/CUMM (4-12)
[2018-04-30 06:38] LABS: INR 1.8; PT Patient Result 18.5 SECS
[2018-04-30 06:54] LABS: Calcium 8.9 MG/DL (8.5-10.1); Osmolality,Calculated 282.4 MOS/KG (273-304); Potassium 4.6 MMOL/L (3.5-5.1)
[2018-04-30] MEDS: MULTIVITAMIN (CENTRUM) TABLET PO SCH (10:39)
[2018-04-30] MEDS: POTASSIUM CHLORIDE 20 MEQ TABLET PO SCH ×3 (10:39→22:06)
[2018-04-30] MEDS: amLODIPine 5 MG TABLET PO SCH (10:40)
[2018-04-30] MEDS: METOPROLOL TARTRATE 50 MG TABLET PO SCH (10:40)
[2018-04-30] MEDS: PANTOPRAZOLE 40 MG TABLET PO SCH (10:40)
[2018-04-30] MEDS: miSOPROStol 100 MCG TABLET PO SCH ×2 (10:44→19:09)
[2018-04-30] MEDS: POLYETHYLENE GLYCOL POWDER 17 GM PACK PO SCH (10:48)
[2018-04-30] MEDS: DIGOXIN 0.25 MG TABLET PO SCH (16:04)
[2018-04-30] MEDS ORDERED: WARFARIN 4 MG TABLET PO SCH (18:00)
[2018-04-30] MEDS: METOPROLOL TARTRATE 25 MG TABLET PO SCH (22:07)
[2018-05-01] MEDS: SODIUM CHLORIDE 0.45% 1,000 ML IV SCH ×2 (06:00→08:09)
[2018-05-01 07:14] LABS: Basophils # 0.1 10*3/uL (0.0-0.2); Basophils % 0.8 % (0.0-0.8); Eosinophils # 0.6 10*3/uL (0.0-0.87); Eosinophils % 4.4 % (0.00-10.9); Hematocrit 44.5 VOL% (42.0-52.0); Immature Granulocytes % 0.5 %; Immature Granulocytes Absolute 0.07 #; Lymphocytes # 2.6 10*3/uL (1.4-4.0); Lymphocytes % 20.4 % (21.2-54.2); Mean Corpuscular HGB Conc 33.7 GM/DL (32-36); Mean Corpuscular Hemoglobin 32 PG (27-34); Mean Corpuscular Volume 95.7 FL (87-102); Mean Platelet Volume 11.7 FL (9.6-12.0); Monocytes % 7.4 % (1.7-12.7); Neutrophils # 8.6 10*3/uL (1.4-7.4); Neutrophils % 66.5 % (38.7-73.9); Platelet Count 341 T/CUMM (130-400); Red Blood Count 4.65 MC/CUMM (3.8-5.5); Red Cell Distribution Width 13.3 % (9.3-17.3); White Blood Count 12.9 T/CUMM (4-12)
[2018-05-01 07:18] LABS: INR 1.4; PT Patient Result 15.1 SECS; Partial Thromboplastin Time 35.2 SECS (0-40)
[2018-05-01 07:37] LABS: Calcium 9.3 MG/DL (8.5-10.1); Osmolality,Calculated 281.5 MOS/KG (273-304); Potassium 5.3 MMOL/L (3.5-5.1)
[2018-05-01] MEDS: POLYETHYLENE GLYCOL POWDER 17 GM PACK PO SCH (09:54)
[2018-05-01] MEDS: PANTOPRAZOLE 40 MG TABLET PO SCH (09:54)
[2018-05-01] MEDS: METOPROLOL TARTRATE 50 MG TABLET PO SCH (09:55)
[2018-05-01] MEDS: amLODIPine 5 MG TABLET PO SCH (09:55)
[2018-05-01] MEDS: miSOPROStol 100 MCG TABLET PO SCH ×2 (09:55→16:13)
[2018-05-01] MEDS: MULTIVITAMIN (CENTRUM) TABLET PO SCH (09:55)
[2018-05-01] MEDS: POTASSIUM CHLORIDE 20 MEQ TABLET PO SCH (09:59)
[2018-05-01] MEDS ORDERED: SODIUM POLYSTYRENE SULFATE 15 GM/60 ML BOTTLE PO STA (10:21)
[2018-05-01] MEDS ORDERED: HYDROCORTISONE 2.5% RECTAL CREAM 30 GM TUBE TOP PRN (12:58)
[2018-05-01 17:41] LABS: Osmolality,Calculated 287.4 MOS/KG (273-304); Potassium 4.7 MMOL/L (3.5-5.1)
[2018-05-01] MEDS: METOPROLOL TARTRATE 25 MG TABLET PO SCH (21:50)
[2018-05-02] MEDS: SODIUM CHLORIDE 0.45% 1,000 ML IV SCH (02:21)
[2018-05-02] MEDS: miSOPROStol 100 MCG TABLET PO SCH (06:36)
[2018-05-02 07:55] LABS: INR 1.3; PT Patient Result 13.6 SECS
[2018-05-02 08:20] LABS: Calcium 9.4 MG/DL (8.5-10.1); Osmolality,Calculated 283.4 MOS/KG (273-304); Potassium 4.7 MMOL/L (3.5-5.1)
[2018-05-02] MEDS: METOPROLOL TARTRATE 50 MG TABLET PO SCH (08:25)
[2018-05-02] MEDS ORDERED: PROPOFOL 200 MG/20 ML VIAL IV ONE (09:00)
[2018-05-02] MEDS ORDERED: LIDOCAINE 100 MG/5 ML SYRINGE ONE (09:00)
[2018-05-02] MEDS: amLODIPine 5 MG TABLET PO SCH (12:41)
[2018-05-02] MEDS: PANTOPRAZOLE 40 MG TABLET PO SCH (12:41)
[2018-05-02] MEDS: MULTIVITAMIN (CENTRUM) TABLET PO SCH (12:42)
[2018-05-02 14:11] VITALS: BP 148/95
[2018-05-02] MEDS: POLYETHYLENE GLYCOL POWDER 17 GM PACK PO SCH (14:13)
[2018-05-02] MEDS: DIGOXIN 0.25 MG TABLET PO SCH (14:52)
== END 2018-05-02 15:31 | disposition home or self-care (01) | DRG 683 ==
LOC: N.ED 07:33 → SUATTDRO 09:53 → N.EDINP 09:53 → N.5E 10:16
PROVIDERS: ADMIT Internal Medicine Nephrology; ATTEND Internal Medicine

== ENCOUNTER 2019-05-22 08:18 | Observation (INO) ==
[2019-05-22 08:53] LABS: Basophils # 0.1 10*3/uL (0.0-0.2); Basophils % 0.5 % (0.0-0.8); Eosinophils # 0.1 10*3/uL (0.0-0.87); Eosinophils % 0.8 % (0.00-10.9); Hematocrit 47.7 VOL% (42.0-52.0); Hemoglobin 15.1 GM/DL (14.0-18.0); Immature Granulocytes % 0.6 %; Immature Granulocytes Absolute 0.06 #; Lymphocytes % 19.4 % (21.2-54.2); Mean Corpuscular HGB Conc 31.7 GM/DL (32-36); Mean Platelet Volume 11.3 FL (9.6-12.0); Monocytes % 7.7 % (1.7-12.7); Platelet Count 244 T/CUMM (130-400); Red Blood Count 4.82 MC/CUMM (3.8-5.5); Red Cell Distribution Width 13.6 % (9.3-17.3); White Blood Count 10.2 T/CUMM (4-12)
[2019-05-22 09:04] LABS: INR 1.9; PT Patient Result 20.5 SECS; Partial Thromboplastin Time 35.7 SECS (0-40)
[2019-05-22 09:13] LABS: Albumin 3.6 G/DL (3.4-5.0); Bilirubin,Total 0.7 MG/DL (0.2-1.0); Calcium 9.1 MG/DL (8.5-10.1); Osmolality,Calculated 283.7 MOS/KG (273-304); Total Protein 8.2 G/DL (6.4-8.3)
[2019-05-22 09:30] LABS: Apearance,Urine CLEAR (Clear); Bacteria,Urine Occasional /HPF (Few); Bilirubin,Urine Negative (Negative); Blood, Urine Negative (Negative); Glucose,Urine (UA) 50 mg/dL (Negative); Hyaline Casts,Urine 3 /LPF (0-3); Ketones,Urine 5 mg/dL (Negative); Mucus,Urine Occasional /LPF (Occasional); Nitrite,Urine Negative (Negative); Protein,Urine >=500 MG/DL; RBC,Urine 2 /HPF (0-4); Squamous Epithelial Cell,Urine Occasional /HPF (0-10); Urine Color Yellow (Yellow); Urine Specific Gravity 1.016 (1.001-1.035); Urine Urobilinogen < 2.0 EU/DL (0.2-1.0); WBC,Urine 3 /HPF (0-6)
[2019-05-22] MEDS ORDERED: LINACLOTIDE 145 MCG CAPSULE PO PRN (11:23)
[2019-05-22] MEDS ORDERED: TAMSULOSIN 0.4 MG CAPSULE PO PRN (11:23)
[2019-05-22] MEDS ORDERED: FUROSEMIDE 20 MG TABLET PO PRN (11:23)
[2019-05-22] MEDS ORDERED: POLYETHYLENE GLYCOL POWDER 17 GM PACK PO PRN (11:23)
[2019-05-22] MEDS ORDERED: ChlordiazePOXIDE/CLIDINIUM 5-2.5 MG CAPSULE PO PRN (11:23)
[2019-05-22] MEDS ORDERED: CYANOCOBALAMIN 1000 MCG/1 ML VIAL IM SCH (11:30)
[2019-05-22] MEDS ORDERED: ONDANSETRON 4 MG/2 ML VIAL IV PRN (11:36)
[2019-05-22] MEDS ORDERED: LABETALOL 20 MG/4 ML SYRINGE IV PRN (11:38)
[2019-05-22 14:25] LABS: Folate 19.2 NG/ML (5.4-24.0); Vitamin B12 680 PG/ML (211-911)
[2019-05-22] MEDS: SODIUM CHLORIDE 0.9% 1,000 ML IV SCH (14:25)
[2019-05-22 16:51] LABS: Barbiturates Screen,Urine Negative (Negative); Benzodiazepines Screen,Urine Negative (Negative); Cannabinoid Screen,Urine Negative (Negative); Opiate Screen,Urine Positive (Negative); Phencyclidine Screen,Urine Negative (Negative)
[2019-05-22] MEDS ORDERED: WARFARIN 4 MG TABLET PO SCH ×2 (18:00)
[2019-05-22] MEDS ORDERED: LORazepam 1 MG TABLET PO ONE (20:04)
[2019-05-22] MEDS ORDERED: METOPROLOL TARTRATE 50 MG TABLET PO SCH (21:00)
[2019-05-22] MEDS ORDERED: ATORVASTATIN 40 MG TABLET PO SCH (21:00)
[2019-05-23] MEDS: SODIUM CHLORIDE 0.9% 1,000 ML IV SCH ×2 (00:39→12:26)
[2019-05-23 04:00] LABS: Basophils % 0.4 % (0.0-0.8); Eosinophils # 0.1 10*3/uL (0.0-0.87); Eosinophils % 1.2 % (0.00-10.9); Hematocrit 42.3 VOL% (42.0-52.0); Hemoglobin 13.6 GM/DL (14.0-18.0); Immature Granulocytes % 0.4 %; Immature Granulocytes Absolute 0.04 #; Lymphocytes # 2.9 10*3/uL (1.4-4.0); Lymphocytes % 28.9 % (21.2-54.2); Mean Corpuscular HGB Conc 32.2 GM/DL (32-36); Mean Platelet Volume 11.2 FL (9.6-12.0); Monocytes % 9.9 % (1.7-12.7); Neutrophils % 59.2 % (38.7-73.9); Platelet Count 220 T/CUMM (130-400); Red Blood Count 4.36 MC/CUMM (3.8-5.5); Red Cell Distribution Width 13.4 % (9.3-17.3); White Blood Count 10.2 T/CUMM (4-12)
[2019-05-23 04:32] LABS: Calcium 8.5 MG/DL (8.5-10.1); Osmolality,Calculated 286.3 MOS/KG (273-304); Risk Ratio 4.42; Thyroid Stimulating Hormone 1.15 uIU/ml (0.358-3.74)
[2019-05-23] MEDS ORDERED: SODIUM PHOSPHATE ENEMA 133 ML BOTTLE RECTAL ONE (08:31)
[2019-05-23] MEDS ORDERED: ATORVASTATIN 40 MG TABLET PO SCH (08:46)
[2019-05-23] MEDS ORDERED: METOPROLOL TARTRATE 50 MG TABLET PO SCH (09:00)
[2019-05-23] MEDS ORDERED: MULTIVITAMIN (OCUVITE) TABLET PO SCH (09:00)
[2019-05-23] MEDS ORDERED: amLODIPine 10 MG TABLET PO SCH (09:00)
[2019-05-23 09:48] LABS: PT Patient Result 21.7 SECS
[2019-05-23] MEDS ORDERED: LEVOTHYROXINE 112 MCG TABLET PO SCH (11:23)
[2019-05-23 11:46] VITALS: BP 134/74
[2019-05-23] MEDS ORDERED: WARFARIN 4 MG TABLET PO SCH ×2 (18:00)
== END 2019-05-23 12:25 | disposition home or self-care (01) ==
LOC: N.EDINP 08:18 → N.ED 08:18 → N.4E 12:00
PROVIDERS: ADMIT Internal Medicine; ATTEND Internal Medicine

== ENCOUNTER 2019-08-31 20:38 | Observation (INO) ==
[2019-08-31 21:09] LABS: Basophils # 0.1 10*3/uL (0.0-0.2); Basophils % 0.6 % (0.0-0.8); Eosinophils # 0.2 10*3/uL (0.0-0.87); Hematocrit 45.6 VOL% (42.0-52.0); Hemoglobin 14.6 GM/DL (14.0-18.0); Immature Granulocytes % 0.3 %; Immature Granulocytes Absolute 0.04 #; Lymphocytes # 4.1 10*3/uL (1.4-4.0); Lymphocytes % 35.6 % (21.2-54.2); Mean Corpuscular Volume 99.3 FL (87-102); Mean Platelet Volume 11.2 FL (9.6-12.0); Monocytes % 8.5 % (1.7-12.7); Platelet Count 284 T/CUMM (130-400); Red Blood Count 4.59 MC/CUMM (3.8-5.5); Red Cell Distribution Width 13.7 % (9.3-17.3); White Blood Count 11.5 T/CUMM (4-12)
[2019-08-31 21:22] LABS: INR 2.8; Partial Thromboplastin Time 39.9 SECS (20.8-36.0)
[2019-08-31 21:25] LABS: Albumin 3.8 G/DL (3.4-5.0); Bilirubin,Total 0.5 MG/DL (0.2-1.0); Calcium 9.1 MG/DL (8.5-10.1); Osmolality,Calculated 291.5 MOS/KG (273-304)
[2019-08-31 21:26] LABS: PT Patient Result 30.1 SECS (9.6-12.2)
[2019-08-31] MEDS ORDERED: DILTIAZEM 50 MG/10 ML VIAL IV STA (21:27)
[2019-08-31] MEDS ORDERED: FUROSEMIDE 40 MG/4 ML VIAL IV STA (21:52)
[2019-08-31] MEDS ORDERED: ONDANSETRON 4 MG/2 ML VIAL IV PRN (22:35)
[2019-08-31 22:36] LABS: Apearance,Urine CLEAR (Clear); Bacteria,Urine Occasional /HPF (Few); Bilirubin,Urine Negative (Negative); Blood, Urine Negative (Negative); Glucose,Urine (UA) 50 mg/dL (Negative); Hyaline Casts,Urine 3 /LPF (0-3); Ketones,Urine Negative (Negative); Mucus,Urine Occasional /LPF (Occasional); Nitrite,Urine Negative (Negative); Protein,Urine 100 MG/DL; RBC,Urine 1 /HPF (0-4); Squamous Epithelial Cell,Urine Occasional /HPF (0-10); Urine Color Yellow (Yellow); Urine Specific Gravity 1.009 (1.001-1.035); Urine Urobilinogen < 2.0 EU/DL (0.2-1.0); WBC,Urine 1 /HPF (0-6)
[2019-08-31] MEDS ORDERED: dilTIAZem Drip 125 MG/125 ML PREMIX IV SCH (23:00)
[2019-09-01 05:43] LABS: Basophils # 0.1 10*3/uL (0.0-0.2); Basophils % 0.5 % (0.0-0.8); Eosinophils # 0.1 10*3/uL (0.0-0.87); Eosinophils % 1.2 % (0.00-10.9); Hematocrit 44.1 VOL% (42.0-52.0); Hemoglobin 14.5 GM/DL (14.0-18.0); Immature Granulocytes % 0.3 %; Immature Granulocytes Absolute 0.04 #; Lymphocytes # 2.9 10*3/uL (1.4-4.0); Lymphocytes % 24.4 % (21.2-54.2); Mean Corpuscular HGB Conc 32.9 GM/DL (32-36); Mean Corpuscular Volume 96.7 FL (87-102); Mean Platelet Volume 11.5 FL (9.6-12.0); Monocytes % 10.2 % (1.7-12.7); Neutrophils % 63.4 % (38.7-73.9); Platelet Count 271 T/CUMM (130-400); Red Blood Count 4.56 MC/CUMM (3.8-5.5); Red Cell Distribution Width 13.4 % (9.3-17.3); White Blood Count 11.7 T/CUMM (4-12)
[2019-09-01 05:51] LABS: INR 3.1
[2019-09-01 05:54] LABS: PT Patient Result 33.1 SECS (9.6-12.2)
[2019-09-01 06:05] LABS: Albumin 3.5 G/DL (3.4-5.0); Bilirubin,Total 1.6 MG/DL (0.2-1.0); Osmolality,Calculated 290.4 MOS/KG (273-304); Risk Ratio 3.95; Total Protein 7.3 G/DL (6.4-8.3)
[2019-09-01] MEDS ORDERED: FUROSEMIDE 20 MG TABLET PO PRN (08:20)
[2019-09-01] MEDS ORDERED: POLYETHYLENE GLYCOL POWDER 17 GM PACK PO PRN (08:20)
[2019-09-01] MEDS ORDERED: TAMSULOSIN 0.4 MG CAPSULE PO PRN (08:20)
[2019-09-01] MEDS ORDERED: ChlordiazePOXIDE/CLIDINIUM 5-2.5 MG CAPSULE PO PRN (08:20)
[2019-09-01] MEDS ORDERED: CYANOCOBALAMIN 1000 MCG/1 ML VIAL IM SCH (08:30)
[2019-09-01] MEDS: METOPROLOL TARTRATE 50 MG TABLET PO SCH (10:32)
[2019-09-01] MEDS: LEVOTHYROXINE 112 MCG TABLET PO SCH (10:32)
[2019-09-01] MEDS: MULTIVITAMIN (OCUVITE) TABLET PO SCH (10:32)
[2019-09-01] MEDS: PANTOPRAZOLE 40 MG TABLET PO SCH (10:32)
[2019-09-01] MEDS ORDERED: hydrALAZINE 20 MG/1 ML VIAL IV PRN (12:38)
[2019-09-01] MEDS ORDERED: MELATONIN 3 MG TABLET PO PRN (12:39)
[2019-09-01] MEDS ORDERED: amLODIPine 5 MG TABLET PO SCH (13:21)
[2019-09-01] MEDS ORDERED: WARFARIN 2 MG TABLET PO SCH (18:00)
[2019-09-01] MEDS: METOPROLOL TARTRATE 25 MG TABLET PO SCH (20:54)
[2019-09-02 05:50] LABS: Basophils # 0.1 10*3/uL (0.0-0.2); Basophils % 0.4 % (0.0-0.8); Eosinophils # 0.1 10*3/uL (0.0-0.87); Eosinophils % 1.2 % (0.00-10.9); Hematocrit 45.5 VOL% (42.0-52.0); Immature Granulocytes % 0.3 %; Immature Granulocytes Absolute 0.03 #; Lymphocytes # 3.1 10*3/uL (1.4-4.0); Lymphocytes % 25.8 % (21.2-54.2); Mean Platelet Volume 11.7 FL (9.6-12.0); Neutrophils % 64.3 % (38.7-73.9); Platelet Count 275 T/CUMM (130-400); Red Blood Count 4.69 MC/CUMM (3.8-5.5); Red Cell Distribution Width 13.7 % (9.3-17.3); White Blood Count 11.9 T/CUMM (4-12)
[2019-09-02 06:00] LABS: INR 2.3
[2019-09-02 06:05] LABS: PT Patient Result 24.8 SECS (9.6-12.2)
[2019-09-02 06:15] LABS: Calcium 9.4 MG/DL (8.5-10.1); Osmolality,Calculated 292.5 MOS/KG (273-304)
[2019-09-02] MEDS: LEVOTHYROXINE 112 MCG TABLET PO SCH (06:40)
[2019-09-02] MEDS: PANTOPRAZOLE 40 MG TABLET PO SCH (09:29)
[2019-09-02] MEDS: METOPROLOL TARTRATE 50 MG TABLET PO SCH (09:29)
[2019-09-02] MEDS: MULTIVITAMIN (OCUVITE) TABLET PO SCH (09:29)
[2019-09-02] MEDS ORDERED: SERTRALINE 25 MG TABLET PO ONE (09:57)
[2019-09-02 13:11] LABS: Free T4 (Free Thyroxine) 1.2 NG/DL (0.76-1.46); Thyroid Stimulating Hormone 1.95 uIU/ml (0.358-3.74)
[2019-09-02] MEDS: LINACLOTIDE 145 MCG CAPSULE PO PRN (17:01)
[2019-09-02] MEDS ORDERED: WARFARIN 4 MG TABLET PO SCH (18:00)
[2019-09-02] MEDS: METOPROLOL TARTRATE 25 MG TABLET PO SCH (20:48)
[2019-09-02] MEDS ORDERED: MELATONIN 3 MG TABLET PO SCH (21:00)
[2019-09-02] MEDS ORDERED: SERTRALINE 25 MG TABLET PO SCH (21:00)
[2019-09-03] MEDS: LINACLOTIDE 145 MCG CAPSULE PO PRN (04:56)
[2019-09-03] MEDS: LEVOTHYROXINE 112 MCG TABLET PO SCH ×2 (05:03→06:08)
[2019-09-03 05:09] LABS: Basophils # 0.1 10*3/uL (0.0-0.2); Basophils % 0.6 % (0.0-0.8); Eosinophils # 0.2 10*3/uL (0.0-0.87); Eosinophils % 1.5 % (0.00-10.9); Hematocrit 43.2 VOL% (42.0-52.0); Hemoglobin 14.1 GM/DL (14.0-18.0); Immature Granulocytes % 0.4 %; Immature Granulocytes Absolute 0.04 #; Lymphocytes # 2.9 10*3/uL (1.4-4.0); Lymphocytes % 27.3 % (21.2-54.2); Mean Corpuscular HGB Conc 32.6 GM/DL (32-36); Mean Corpuscular Volume 98.2 FL (87-102); Mean Platelet Volume 11.4 FL (9.6-12.0); Monocytes % 9.2 % (1.7-12.7); Platelet Count 285 T/CUMM (130-400); Red Cell Distribution Width 13.6 % (9.3-17.3); White Blood Count 10.5 T/CUMM (4-12)
[2019-09-03 05:17] LABS: INR 2.5
[2019-09-03 05:34] LABS: Calcium 9.1 MG/DL (8.5-10.1); Osmolality,Calculated 290.7 MOS/KG (273-304)
[2019-09-03] MEDS: PANTOPRAZOLE 40 MG TABLET PO SCH (09:32)
[2019-09-03] MEDS: METOPROLOL TARTRATE 50 MG TABLET PO SCH (09:32)
[2019-09-03] MEDS: MULTIVITAMIN (OCUVITE) TABLET PO SCH (09:32)
[2019-09-03 11:08] VITALS: BP 151/88
[2019-09-04] MEDS ORDERED: ONDANSETRON ODT 4 MG TABLET PO SCH (07:30)
== END 2019-09-03 12:50 | disposition home or self-care (01) ==
LOC: N.ED 20:38 → N.EDINP 20:38 → N.TELEN 23:22
PROVIDERS: ADMIT Internal Medicine; ATTEND Internal Medicine

== ENCOUNTER 2020-01-18 10:29 | Inpatient (IN) ==
[2020-01-18] MEDS ORDERED: ONDANSETRON 4 MG/2 ML VIAL IV ONE (10:40)
[2020-01-18 11:40] LABS: Apearance,Urine CLEAR (Clear); Bilirubin,Urine Negative (Negative); Blood, Urine Negative (Negative); Glucose,Urine (UA) Negative (Negative); Ketones,Urine Negative (Negative); Mucus,Urine Occasional /LPF (Occasional); Nitrite,Urine Negative (Negative); Protein,Urine 100 MG/DL; RBC,Urine 2 /HPF (0-4); Urine Color Yellow (Yellow); Urine Specific Gravity 1.013 (1.001-1.035); Urine Urobilinogen < 2.0 EU/DL (0.2-1.0); WBC,Urine 1 /HPF (0-6)
[2020-01-18 11:53] LABS: Basophils % 0.4 % (0.0-0.8); Eosinophils # 0.1 10*3/uL (0.0-0.87); Eosinophils % 1.2 % (0.00-10.9); Hematocrit 45.3 VOL% (42.0-52.0); Hemoglobin 14.2 GM/DL (14.0-18.0); Immature Granulocytes % 0.3 %; Immature Granulocytes Absolute 0.03 #; Lymphocytes # 1.9 10*3/uL (1.4-4.0); Lymphocytes % 20.8 % (21.2-54.2); Mean Corpuscular HGB Conc 31.3 GM/DL (32-36); Mean Corpuscular Volume 99.3 FL (87-102); Mean Platelet Volume 10.7 FL (9.6-12.0); Monocytes % 7.7 % (1.7-12.7); Neutrophils % 69.6 % (38.7-73.9); Platelet Count 281 T/CUMM (130-400); Red Blood Count 4.56 MC/CUMM (3.8-5.5); Red Cell Distribution Width 13.7 % (9.3-17.3); White Blood Count 9.3 T/CUMM (4-12)
[2020-01-18] MEDS ORDERED: cloNIDine 0.1 MG TABLET PO STA (12:12)
[2020-01-18 12:29] LABS: Albumin 3.4 G/DL (3.4-5.0); Bilirubin,Total 0.5 MG/DL (0.2-1.0); Calcium 8.9 MG/DL (8.5-10.1); Osmolality,Calculated 289.4 MOS/KG (273-304); Total Protein 7.7 G/DL (6.4-8.3)
[2020-01-18 12:30] LABS: Troponin I < 0.015 NG/ML (0.00-0.045)
[2020-01-18] MEDS ORDERED: SODIUM CHLORIDE 0.9% 1,000 ML IV STA (12:52)
[2020-01-18 13:47] LABS: PT Patient Result 63.2 SECS (9.6-12.2)
[2020-01-18 13:49] LABS: INR 5.9
[2020-01-18] MEDS ORDERED: ACETAMINOPHEN 325 MG TABLET PO PRN (15:21)
[2020-01-18] MEDS ORDERED: ONDANSETRON 4 MG/2 ML VIAL IV PRN (15:21)
[2020-01-18] MEDS ORDERED: TAMSULOSIN 0.4 MG CAPSULE PO PRN (15:23)
[2020-01-18] MEDS ORDERED: LINACLOTIDE 145 MCG CAPSULE PO PRN (15:23)
[2020-01-18] MEDS ORDERED: DILTIAZEM 30 MG TABLET PO PRN (15:23)
[2020-01-18] MEDS ORDERED: POLYETHYLENE GLYCOL POWDER 17 GM PACK PO PRN (15:23)
[2020-01-18] MEDS: SODIUM CHLORIDE 0.9% 1,000 ML IV SCH (17:56)
[2020-01-18] MEDS: PANTOPRAZOLE 20 MG TABLET PO SCH (20:55)
[2020-01-18] MEDS: SERTRALINE 25 MG TABLET PO SCH (20:55)
[2020-01-18] MEDS: METOPROLOL TARTRATE 50 MG TABLET PO SCH (20:55)
[2020-01-19] MEDS: LEVOTHYROXINE 100 MCG TABLET PO SCH (06:14)
[2020-01-19 06:49] LABS: Basophils % 0.4 % (0.0-0.8); Eosinophils # 0.2 10*3/uL (0.0-0.87); Eosinophils % 2.2 % (0.00-10.9); Hematocrit 42.6 VOL% (42.0-52.0); Hemoglobin 13.2 GM/DL (14.0-18.0); Immature Granulocytes % 0.4 %; Immature Granulocytes Absolute 0.03 #; Lymphocytes # 2.7 10*3/uL (1.4-4.0); Lymphocytes % 39.8 % (21.2-54.2); Mean Corpuscular Volume 100.2 FL (87-102); Monocytes % 8.8 % (1.7-12.7); Neutrophils % 48.4 % (38.7-73.9); Platelet Count 280 T/CUMM (130-400); Red Blood Count 4.25 MC/CUMM (3.8-5.5); Red Cell Distribution Width 13.6 % (9.3-17.3); White Blood Count 6.8 T/CUMM (4-12)
[2020-01-19 06:59] LABS: INR 2.9
[2020-01-19 07:05] LABS: PT Patient Result 31.4 SECS (9.6-12.2)
[2020-01-19 07:11] LABS: Anisocytosis Slight; Atypical Lymphocytes Few; Band Neutrophils 6 % (0-10); Eosinophils 3 % (0-10); Lymphocytes 43 % (20-55); Platelet Estimate Normal; Segmented Neutrophils 42 % (50-85); Smudge Cells Few; Total Cells Counted 100
[2020-01-19 07:12] LABS: Macrocytosis Slight
[2020-01-19 07:19] LABS: Calcium 8.9 MG/DL (8.5-10.1); Osmolality,Calculated 288.4 MOS/KG (273-304); Thyroid Stimulating Hormone 1.57 uIU/ml (0.358-3.74)
[2020-01-19] MEDS: PANTOPRAZOLE 20 MG TABLET PO SCH ×2 (08:09→20:13)
[2020-01-19] MEDS: MULTIVITAMIN (BEROCCA) TABLET PO SCH (08:09)
[2020-01-19] MEDS: METOPROLOL TARTRATE 50 MG TABLET PO SCH ×2 (08:09→20:12)
[2020-01-19] MEDS ORDERED: PANTOPRAZOLE 40 MG TABLET PO SCH (09:00)
[2020-01-19] MEDS: cloNIDine 0.1 MG TABLET PO PRN (11:27)
[2020-01-19 14:01] LABS: PT Patient Result 32.7 SECS (9.6-12.2)
[2020-01-19] MEDS ORDERED: WARFARIN 4 MG TABLET PO SCH (18:00)
[2020-01-19] MEDS: SERTRALINE 25 MG TABLET PO SCH (20:16)
[2020-01-19] MEDS: SODIUM CHLORIDE 0.9% 1,000 ML IV SCH ×2 (20:16→20:17)
[2020-01-20] MEDS ORDERED: CALCIUM CARBONATE CHEW 500 MG TABLET PO ONE (00:49)
[2020-01-20] MEDS ORDERED: diphenhydrAMINE CAP 50 MG CAPSULE PO ONE (00:49)
[2020-01-20 05:32] LABS: Basophils # 0.1 10*3/uL (0.0-0.2); Basophils % 0.5 % (0.0-0.8); Eosinophils # 0.1 10*3/uL (0.0-0.87); Eosinophils % 1.4 % (0.00-10.9); Hematocrit 39.4 VOL% (42.0-52.0); Hemoglobin 12.7 GM/DL (14.0-18.0); Immature Granulocytes % 0.2 %; Immature Granulocytes Absolute 0.02 #; Mean Corpuscular HGB Conc 32.2 GM/DL (32-36); Mean Corpuscular Volume 98.3 FL (87-102); Mean Platelet Volume 11.1 FL (9.6-12.0); Monocytes % 7.8 % (1.7-12.7); Neutrophils % 57.1 % (38.7-73.9); Platelet Count 261 T/CUMM (130-400); Red Blood Count 4.01 MC/CUMM (3.8-5.5); Red Cell Distribution Width 13.5 % (9.3-17.3); White Blood Count 9.2 T/CUMM (4-12)
[2020-01-20 05:43] LABS: INR 2.7
[2020-01-20 05:44] LABS: PT Patient Result 29.6 SECS (9.6-12.2)
[2020-01-20] MEDS: LEVOTHYROXINE 100 MCG TABLET PO SCH (05:51)
[2020-01-20 05:58] LABS: Osmolality,Calculated 290.1 MOS/KG (273-304)
[2020-01-20] MEDS: METOPROLOL TARTRATE 50 MG TABLET PO SCH ×2 (07:15→08:51)
[2020-01-20] MEDS: cloNIDine 0.1 MG TABLET PO PRN (07:16)
[2020-01-20] MEDS: MULTIVITAMIN (BEROCCA) TABLET PO SCH ×2 (07:16→08:51)
[2020-01-20] MEDS: PANTOPRAZOLE 20 MG TABLET PO SCH ×2 (07:16→08:51)
[2020-01-20] MEDS: SODIUM CHLORIDE 0.9% 1,000 ML IV SCH (10:46)
[2020-01-20 12:27] VITALS: BP 138/84
[2020-01-20] MEDS ORDERED: WARFARIN 4 MG TABLET PO SCH (18:00)
[2020-01-25] MEDS ORDERED: CYANOCOBALAMIN 1000 MCG/1 ML VIAL IM SCH (09:00)
== END 2020-01-20 13:45 | disposition home or self-care (01) | DRG 392 ==
LOC: N.ED 10:29 → N.EDINP 13:11 → N.5E 13:48
PROVIDERS: ADMIT Internal Medicine; ATTEND Internal Medicine

== ENCOUNTER 2020-08-01 08:38 | Inpatient (IN) ==
[2020-08-01 09:29] LABS: Basophils # 0.1 10*3/uL (0.0-0.2); Basophils % 0.7 % (0.0-0.8); Eosinophils # 0.2 10*3/uL (0.0-0.87); Eosinophils % 1.8 % (0.00-10.9); Hematocrit 43.3 VOL% (42.0-52.0); Immature Granulocytes % 0.6 %; Immature Granulocytes Absolute 0.06 #; Lymphocytes # 2.1 10*3/uL (1.4-4.0); Mean Corpuscular HGB Conc 32.3 GM/DL (32-36); Monocytes % 8.6 % (1.7-12.7); Neutrophils % 69.3 % (38.7-73.9); Platelet Count 321 T/CUMM (130-400); Red Blood Count 4.51 MC/CUMM (3.8-5.5); Red Cell Distribution Width 14.2 % (9.3-17.3); White Blood Count 10.9 T/CUMM (4-12)
[2020-08-01 09:39] LABS: INR 2.2; PT Patient Result 22.4 SECS (9.8-11.9); Partial Thromboplastin Time 44.1 SECS (23.9-33.8)
[2020-08-01 10:00] LABS: Albumin 3.1 G/DL (3.4-5.0); Bilirubin,Total 1.8 MG/DL (0.2-1.0); Calcium 9.4 MG/DL (8.5-10.1); Osmolality,Calculated 291.3 MOS/KG (273-304); Total Protein 7.5 G/DL (6.4-8.3)
[2020-08-01] MEDS ORDERED: SODIUM CHLORIDE 0.9% 1,000 ML IV STA (10:11)
[2020-08-01 10:46] LABS: Apearance,Urine CLEAR (Clear); Bilirubin,Urine Negative (Negative); Blood, Urine Negative (Negative); Glucose,Urine (UA) Negative (Negative); Ketones,Urine Negative (Negative); Nitrite,Urine Negative (Negative); Protein,Urine 100 MG/DL; RBC,Urine 1 /HPF (0-4); Squamous Epithelial Cell,Urine Occasional /HPF (0-10); Urine Color Straw (Yellow); Urine Specific Gravity 1.008 (1.001-1.035); Urine Urobilinogen < 2.0 EU/DL (0.2-1.0); WBC,Urine 1 /HPF (0-6)
[2020-08-01] MEDS ORDERED: cefTRIAXone 1,000 MG in SODIUM CHLORIDE 0.9% 100 ML IV STA (11:35)
[2020-08-01] MEDS ORDERED: hydrALAZINE 20 MG/1 ML VIAL IV PRN (13:35)
[2020-08-01] MEDS ORDERED: GLUCAGON 1 MG VIAL IM PRN (13:35)
[2020-08-01] MEDS ORDERED: ACETAMINOPHEN 325 MG TABLET PO PRN (13:35)
[2020-08-01] MEDS ORDERED: DEXTROSE 50% 25 GM/50 ML VIAL IV PRN (13:35)
[2020-08-01] MEDS ORDERED: ONDANSETRON 4 MG/2 ML VIAL IV PRN (13:35)
[2020-08-01] MEDS ORDERED: DOCUSATE SODIUM 100 MG CAPSULE PO PRN (13:35)
[2020-08-01] MEDS ORDERED: LACTULOSE 20 GM/30 ML UDCUP PO PRN (13:35)
[2020-08-01] MEDS ORDERED: guaiFENesin/DM ER 600-30 MG TABLET PO PRN (13:35)
[2020-08-01] MEDS ORDERED: POLYETHYLENE GLYCOL POWDER 17 GM PACK PO PRN (13:41)
[2020-08-01] MEDS ORDERED: AZITHROMYCIN INJ 500 MG in SODIUM CHLORIDE 0.9% 250 ML IV ONE (16:38)
[2020-08-01] MEDS: MEMANTINE 5 MG TABLET PO SCH (20:40)
[2020-08-01] MEDS: METOPROLOL TARTRATE 50 MG TABLET PO SCH (20:41)
[2020-08-01] MEDS: AMITRIPTYLINE 10 MG TABLET PO SCH (20:43)
[2020-08-01] MEDS ORDERED: DILTIAZEM 30 MG TABLET PO SCH (21:00)
[2020-08-01] MEDS ORDERED: ENOXAPARIN 40 MG/0.4 ML SYRINGE SUBCUT SCH (21:00)
[2020-08-01] MEDS ORDERED: WARFARIN 2 MG TABLET PO SCH (21:00)
[2020-08-02 06:30] LABS: Basophils # 0.1 10*3/uL (0.0-0.2); Basophils % 0.7 % (0.0-0.8); Eosinophils # 0.2 10*3/uL (0.0-0.87); Eosinophils % 2.1 % (0.00-10.9); Hematocrit 40.3 VOL% (42.0-52.0); Hemoglobin 13.2 GM/DL (14.0-18.0); Immature Granulocytes % 0.5 %; Immature Granulocytes Absolute 0.05 #; Lymphocytes % 28.4 % (21.2-54.2); Mean Corpuscular HGB Conc 32.8 GM/DL (32-36); Mean Corpuscular Volume 96.6 FL (87-102); Mean Platelet Volume 11.7 FL (9.6-12.0); Monocytes % 11.8 % (1.7-12.7); Neutrophils % 56.5 % (38.7-73.9); Platelet Count 304 T/CUMM (130-400); Red Blood Count 4.17 MC/CUMM (3.8-5.5); Red Cell Distribution Width 14.3 % (9.3-17.3); White Blood Count 10.7 T/CUMM (4-12)
[2020-08-02] MEDS: LEVOTHYROXINE 100 MCG TABLET PO SCH (06:32)
[2020-08-02 07:07] LABS: Albumin 2.7 G/DL (3.4-5.0); Bilirubin,Total 1.4 MG/DL (0.2-1.0); Calcium 9.6 MG/DL (8.5-10.1); Osmolality,Calculated 293.8 MOS/KG (273-304); Thyroid Stimulating Hormone 0.917 uIU/ml (0.358-3.74); Total Protein 7.2 G/DL (6.4-8.3)
[2020-08-02] MEDS: cefTRIAXone 1,000 MG in SYRINGE 1 EACH IV SCH (08:14)
[2020-08-02] MEDS: DILTIAZEM 30 MG TABLET PO SCH ×2 (08:15→17:19)
[2020-08-02] MEDS: MEMANTINE 5 MG TABLET PO SCH ×2 (08:16→20:40)
[2020-08-02] MEDS: METOPROLOL TARTRATE 50 MG TABLET PO SCH ×2 (08:17→20:40)
[2020-08-02] MEDS: WARFARIN 2 MG TABLET PO SCH (08:18)
[2020-08-02] MEDS ORDERED: AZITHROMYCIN INJ 500 MG in SODIUM CHLORIDE 0.9% 250 ML IV SCH (09:00)
[2020-08-02] MEDS: AMITRIPTYLINE 10 MG TABLET PO SCH (20:40)
[2020-08-03 06:01] LABS: Basophils # 0.1 10*3/uL (0.0-0.2); Basophils % 0.6 % (0.0-0.8); Eosinophils # 0.2 10*3/uL (0.0-0.87); Hematocrit 43.9 VOL% (42.0-52.0); Immature Granulocytes % 0.4 %; Immature Granulocytes Absolute 0.04 #; Lymphocytes # 2.3 10*3/uL (1.4-4.0); Lymphocytes % 23.1 % (21.2-54.2); Mean Corpuscular HGB Conc 31.9 GM/DL (32-36); Mean Corpuscular Volume 96.7 FL (87-102); Mean Platelet Volume 11.6 FL (9.6-12.0); Monocytes % 10.4 % (1.7-12.7); Neutrophils % 63.5 % (38.7-73.9); Platelet Count 313 T/CUMM (130-400); Red Blood Count 4.54 MC/CUMM (3.8-5.5); Red Cell Distribution Width 14.5 % (9.3-17.3); White Blood Count 10.1 T/CUMM (4-12)
[2020-08-03 06:07] LABS: INR 2.4
[2020-08-03 06:19] LABS: Albumin 2.9 G/DL (3.4-5.0); Bilirubin,Total 1.3 MG/DL (0.2-1.0); Calcium 9.9 MG/DL (8.5-10.1); Osmolality,Calculated 293.8 MOS/KG (273-304); Total Protein 7.5 G/DL (6.4-8.3)
[2020-08-03 06:21] LABS: PT Patient Result 24.2 SECS (9.8-11.9)
[2020-08-03] MEDS: LEVOTHYROXINE 100 MCG TABLET PO SCH (06:28)
[2020-08-03 07:49] VITALS: BP 156/98
[2020-08-03] MEDS: METOPROLOL TARTRATE 50 MG TABLET PO SCH (08:46)
[2020-08-03] MEDS: WARFARIN 2 MG TABLET PO SCH (08:46)
[2020-08-03] MEDS: DILTIAZEM 30 MG TABLET PO SCH (08:47)
[2020-08-03] MEDS: cefTRIAXone 1,000 MG in SYRINGE 1 EACH IV SCH (08:47)
[2020-08-03] MEDS: MEMANTINE 5 MG TABLET PO SCH (08:47)
[2020-08-03] MEDS ORDERED: AZITHROMYCIN 250 MG TABLET PO SCH (09:00)
[2020-08-05] MEDS ORDERED: WARFARIN 2 MG TABLET PO SCH (09:00)
== END 2020-08-03 12:40 | disposition home health service (06) | DRG 194 ==
LOC: EDUNIT# → EDBD → N.ED 08:38 → N.EDINP 12:07 → N.5E 14:43
PROVIDERS: ADMIT Internal Medicine; ATTEND Internal Medicine